=== PATIENT | female | born 1965 | race Caucasian/White ===

== ENCOUNTER 2020-02-24 07:55 | Outpatient (REF) | payer OTHER, SELFPAY ==
[2020-02-24 09:26] LABS: Free T4 (Free Thyroxine) 0.99 ng/dL (0.71-1.85); Thyroid Stimulating Hormone 1.09 mIU/mL (0.32-4.0)
== END 2020-02-24 07:56 | disposition home or self-care (01) ==
LOC: HO.LAB 07:55
PROVIDERS: PCP Family Medicine; Visit Provider Family Medicine
DX: I10 Essential (primary) hypertension (principal); L65.9 Nonscarring hair loss, unspecified
CPT/HCPCS: 84439; 84443

== ENCOUNTER 2020-02-26 09:45 | Emergency (ER) | payer OTHER, SELFPAY ==
--- NOTE | 2020-02-26 | XR_ITS ---
EXAMINATION: XR CHEST CLINICAL INFORMATION: Chest pain COMPARISON: None TECHNIQUE: 2 views of the chest were obtained. FINDINGS: The cardiac and mediastinal contours are normal. The lungs are clear. There is no pleural effusion or pneumothorax. There are degenerative changes of the thoracic spine. There are postsurgical changes of the visualized lower cervical spine. IMPRESSION: No evidence for acute disease in the chest.
[2020-02-26 10:19] VITALS: BP 146/73; PULSE 62; RESP 16; TEMP 36.8; O2SAT 98; BMI 27.4
--- NOTE | 2020-02-26 10:32 | ECG_ITS ---
Test Reason : CHEST PAIN Blood Pressure : / mmHG Vent. Rate : 059 BPM Atrial Rate : 059 BPM P-R Int : 152 ms QRS Dur : 084 ms QT Int : 424 ms P-R-T Axes : 027 012 -04 degrees QTc Int : 419 ms Sinus bradycardia Septal infarct (cited on or before 10-AUG-2019) Nonspecific T wave abnormality Inferior leads Abnormal ECG When compared with ECG of 10-AUG-2019 07:26, Nonspecific T wave abnormality no longer evident in Lateral leads Referred By: Toan Pereira Electronically Signed By:DONAVON ARANDA MD
[2020-02-26 10:57] LABS: Glucose Urine UA NEG (NEG); Leukocyte Esterase Urine NEG (NEG); Nitrite Urine NEG (NEG); Specific Gravity - Urine 1.025 (1.005-1.025); Urine Blood NEG (NEG); Urine Ketones NEG (NEG); Urine Protein NEG (NEG-TRACE)
[2020-02-26 10:58] LABS: MANUAL DIFF FLAG NO
[2020-02-26 10:58] LABS: Appearance Urine CLEAR; Color Urine YELLOW
[2020-02-26 10:59] LABS: UPreg QC Valid YES; Urine Pregnancy NEGATIVE (NEGATIVE)
[2020-02-26 11:08] LABS: Mucus Urine 1+ /LPF; RBC Urine 0 /HPF (0); Squamous Epithelial Cell Urine 1+ /LPF; WBC Urine 0 /HPF (0-4)
[2020-02-26 11:08] LABS: Basophils Percent Auto 0.5 % (0-2); Eosinophils Percent Auto 0.7 % (0-4); Hematocrit 40.5 % (37-47); Hemoglobin 13.1 g/dl (12.0-16.0); Imm Gran Abs Auto 0.02 X10*3/uL (0.00-0.03); Imm Gran Pct Auto 0.4 % (0.0-0.4); Lymphocytes Absolute Auto 1.5 X10*3/uL (1.2-4.9); Lymphocytes Percent Auto 27.1 % (20-40); Mean Corpuscular HGB Conc 32.3 g/dl (31.0-35.0); Mean Corpuscular Hemoglobin 30.4 pg (27.0-33.0); Mean Platelet Volume 9.9 fL (9.4-12.3); Monocytes Absolute Auto 0.4 X10*3/uL (0.1-1.2); Monocytes Percent Auto 6.6 % (2-11); Neutrophils Absolute Auto 3.6 X10*3/uL (2.0-8.3); Neutrophils Percent Auto 64.7 % (45-73); Platelet Count 250 X10*3/uL (160-400); Red Blood Count 4.31 X10*6/uL (4.20-5.50); Red Cell Distribution Width 14.2 % (11.0-16.0); White Blood Count 5.5 X10*3/uL (4.8-10.8)
[2020-02-26 11:13] LABS: Prothrombin Time 11.5 SEC (10.8-13.0)
[2020-02-26 11:24] LABS: Alanine Aminotransferase 9 U/L (0-31); Alkaline Phosphatase 51 U/L (39-117); Anion Gap 10 (12-20); Aspartate Amino Transferase 9 U/L (5-31); Bilirubin Direct < 0.2 mg/dL (0.0-0.5); Bilirubin Total 0.4 mg/dL (0.0-1.0); Blood Urea Nitrogen 9 mg/dL (9-16); Carbon Dioxide 29 mmol/L (22-29); Chloride 104 mmol/L (96-108); Creatinine Clr Calc Pharmacy 77.4; Estimated Glomerular Filt Rate > 60; Glucose Random 121 mg/dL (60-115); Potassium 4.4 mmol/l (3.3-5.1); Sodium 139 mmol/L (135-145)
[2020-02-26 11:28] LABS: B Type Natriuretic Peptide 62 pg/mL (<100); Troponin-I High Sensitivity < 3.5 ng/L (<3.5-17.0)
--- NOTE | 2020-02-26 12:04 | ED.CHESTPAIN ---
HPI - Chest Pain General Chief Complaint: Chest Pain Stated Complaint: HIGH BLOOD PRESSURE Time Seen by Provider: 02/26/20 09:50 Source: patient Mode of arrival: ambulatory Limitations: no limitations History of Present Illness HPI narrative: 54yoF c PMHx of HTN recently started on Lisinopril presenting to the ED c c/o elevated BP since lastnight 190's/90's c associated c mid-sternal chest pain and b;lurry vision and slight SOB. reports the chest pain feels like pressure. Has been constant since last night. Nothing makes the pain worse. Nothing makes the pain better. Denies N/V, headache, lightheadedness, dizziness, back pain, radiation of the pain, Extremity swelling or paresthesias. Patient denies being on oral control, recent travel on a long plane train or car ride, history of cancer, history of recent surgery or hypercoagulation disorder. Risk Factors Coronary artery disease risk factors: hypertension Related Data Allergies Allergy/AdvReac Type Severity Reaction Status Date / Time oxycodone [OXYCODONE] Allergy Intermediate ITCHING/FAT Unverified 02/04/20 15:52 IGUE/HEADAC HE Review of Systems Review of Systems: Yes all other systems are reviewed and are negative Constitutional: Constitutional: Reports as per HPI, Denies body ache(s), Denies chills, Denies excessive sweating, Denies fatigue, Denies fever(s), Denies headache(s) and Denies night sweats Eyes: Eyes: Reports as per HPI ENT: Reports as per HPI, Denies dizziness, Denies facial pain, Denies headache(s), Denies neck pain and Denies disequilibrium Cardiovascular: Cardiovascular: Reports as per HPI, Denies diaphoresis, Denies syncope, Denies rapid heart rate, Denies pedal edema, Denies edema, Denies irregular heart rhythm, Denies leg ulcers, Denies leg edema, Denies lightheadedness, Denies Loss of Consciousness, Denies radiating jaw, neck or arm pain, Denies palpitations, Denies dyspnea on exertion, Denies orthopnea, Denies paroxysmal nocturnal dyspnea and Denies slow heart rate Respiratory: Respiratory: Reports as per HPI, Denies chest congestion, Denies cough, Denies dyspnea on exertion and Denies wheezing Gastrointestinal: Gastrointestinal: Reports as per HPI, Denies abdominal pain, Denies diarrhea, Denies nausea and Denies vomiting Genitourinary: Genitourinary: Reports as per HPI, Denies dysuria, Denies urinary hesitancy and Denies urinary urgency Musculoskeletal: Musculoskeletal: Reports as per HPI, Denies neck pain, Denies numbness, Denies radiating pain into limb and Denies tingling Integumentary/Breasts: Skin/Breast: Reports as per HPI and Denies rash Neurologic: Reports as per HPI, Denies confusion, Denies dizziness, Denies syncope, Denies headache(s), Denies focal weakness, Denies numbness, Denies tingling, Denies paresthesias and Denies disequilibrium Psychiatric: Psychiatric: Reports as per HPI and Denies confusion Endocrine: Endocrine: Reports as per HPI, Denies excessive sweating, Denies fatigue and Denies palpitations Hematologic/Lymphatic: Hematologic/Lymphatic: Reports as per HPI Allergic/Immunologic: Allergic/Immunologic: Reports as per HPI and Denies wheezing PMFSH Past Medical History Attestation statement: The following information was validated with the patient. Medical History Cervical (neck) region somatic dysfunction Social History Social History Smoked in Last 30 Days: No Use of substances other than those prescribed or required for medical reasons: No Advance Directives: No Advance Directives Information Provided: No Physical Exam Vital Signs and I&O and Narrative: Vital Signs and I&O: Vital Signs Temp 97.7 F 02/26/20 12:38 Pulse 56 02/26/20 12:38 Resp 12 02/26/20 12:38 BP 163/88 H 02/26/20 12:38 Pulse Ox 100 02/26/20 12:38 Intake & Output 02/25/20 02/26/20 02/26/20 18:59 06:59 18:59 Weight 72.575 kg Body Mass Index 27.4 Const: General: cooperative, healthy appearing, comfortable, no acute distress, well developed, alert, awake and Physically active; No confusion Nutritional Appearance: average body habitus and well nourished Orientation/consciousness: patient oriented x3 and No confusion Limitations: no limitations HENMT: Head: Yes normal to inspection, Yes No palpable skull fracture present, Yes normocephalic and Yes atraumatic Ears: hearing grossly normal bilaterally General nose exam: Normal external nose present Face and sinus: Yes normal facial exam Mouth: moist mucous membranes Eyes: General: appearance normal, both eyes and all related structures Visual Saleem: normal visual saleem by confrontation Alignment and Position: alignment normal Periorbital: periorbital findings normal Eyelids: Yes eyelids normal Conjunctivae: conjunctivae normal Sclerae: sclerae normal Pupils: Equal, round and reactive pupils present EOM: EOMs intact bilaterally Neck: Neck: Yes normal visual inspection, Yes full ROM, Yes no lymphadenopathy, Yes no meningeal signs, Yes trachea midline and Yes supple Chest: Chest palpation & inspection: normal inspection of the chest Resp: Effort & Inspection: normal respiratory effort and able to speak in complete sentences Auscultation: clear to auscultation bilaterally, no crackles, no rales, no rhonchi and no wheezes Cardio: Rate: regular rate Rhythm: regular rhythm Heart sounds: S1 normal heart sound present and S2 normal heart sound present Peripheral pulses: Peripheral pulses 2+ throughout GI: Inspection: Yes normal to inspection Palpation (GI): Soft to palpation, nontender and No hepatosplenomegaly present Percussion: Yes normal to percussion Auscultation: normal bowel sounds : General: Yes no CVA tenderness Back/Spine/Pelvis: Back: no CVA tenderness Cervical Spine: normal cervical lordosis and cervical ROM normal Thoracic/Lumbar Spine: thoracic and lumbar spine normal to inspection and thoraco-lumbar ROM normal Skin: General skin exam: no rashes or lesions noted, elasticity normal and turgor normal Trauma: no lacerations or abrasions Wounds: no wounds Hair: normal Nails: normal Neuro: General: patient oriented x3, no meningeal signs and No confusion Cranial nerves: Yes CN's II-XII intact bilaterally and Yes Equal, round and reactive pupils present Cognition (Neuro): normal cognition Gait exam (Neuro): Normal gait present Motor exam (neuro): 5/5 motor strength present throughout Extrem: General: Yes normal to inspection, Yes full ROM, Yes capillary refill normal, Yes no clubbing, cyanosis or edema, No no pedal edema, No no calf tenderness, Yes normal gait and No edema Right upper extremity: normal to inspection, full ROM and normal capillary refill; no edema Left upper extremity: normal to inspection, full ROM and normal capillary refill; no edema Right lower extremity: normal to inspection, full ROM and normal capillary refill; no edema Left lower extremity: normal to inspection, full ROM and normal capillary refill; no edema Psych: Appearance: grossly normal and well kempt Mental Status: mental status grossly normal Speech and movement: Normal speech and movement present and Clear speech present Affect: normal affect Attitude: cooperative Thought process: Normal thought process present Thought content: Normal thought content present Insight: Good insight present (Psych) Judgement: Good judgement present (Psych) Course Course Course Narrative: All labs within normal limits including troponin. EKG sinus bradycardia no acute ischemic changes and similar when compared to prior in July of 2019. chest x-ray within normal limits no acute processes noted. Visual acuity within normal limits. Patient's blood pressure has been 140s-160's over 80s while here in the ER. I instructed the patient to return if any new or worsening symptoms to follow-up with primary care provider within the next 2 days for recheck blood pressure and possibly a stress test. Patient understands agrees with this plan. MDM - Chest Pain MDM Narrative Medical decision making narrative: 54yoF c PMHx of HTN recently started on Lisinopril presenting to the ED c c/o elevated BP since lastnight 190's/90's c associated c mid-sternal chest pain and b;lurry vision and slight SOB. reports the chest pain feels like pressure. Has been constant since last night. Nothing makes the pain worse. Nothing makes the pain better. Denies N/V, headache, lightheadedness, dizziness, back pain, radiation of the pain, Extremity swelling or paresthesias. Patient denies being on oral control, recent travel on a long plane train or car ride, history of cancer, history of recent surgery or hypercoagulation disorder. - Concern for ACS vs uncontrolled hypertension. - Plan: Labs, CXR, EKG. Then re-evaluate Medical Records Data Attestation: I reviewed the patient's medical records. Lab Data Attestation: I reviewed the patient's lab results. Result diagrams: 02/26/20 10:47 02/26/20 10:47 Labs: Lab Results 02/26/20 02/26/20 02/26/20 Range/Units 10:45 10:47 10:47 WBC 5.5 (4.8-10.8) X10*3/uL RBC 4.31 (4.20-5.50) X10*6/uL Hgb 13.1 (12.0-16.0) g/dl Hct 40.5 (37-47) % MCV 94.0 (80-98) fL MCH 30.4 (27.0-33.0) pg MCHC 32.3 (31.0-35.0) g/dl RDW 14.2 (11.0-16.0) % Plt Count 250 (160-400) X10*3/uL MPV 9.9 (9.4-12.3) fL Immature Gran % (Auto) 0.4 (0.0-0.4) % Neut % (Auto) 64.7 (45-73) % Lymph % (Auto) 27.1 (20-40) % [place] % (Auto) 6.6 (2-11) % Eos % (Auto) 0.7 (0-4) % Baso % (Auto) 0.5 (0-2) % Lymph # (Auto) 1.5 (1.2-4.9) X10*3/uL [place] # (Auto) 0.4 (0.1-1.2) X10*3/uL Eos # (Auto) 0.0 (0.0-0.4) X10*3/uL Baso # (Auto) 0.0 (0.0-0.2) X10*3/uL Abs Immat Gran (auto) 0.02 (0.00-0.03) X10*3/uL Absolute Neuts (auto) 3.6 (2.0-8.3) X10*3/uL Absolute Nucleated RBC 0.000 (0.0-0.012) X10*3/uL Nucleated RBC % (auto) 0.0 (0.0-0.2) /100WBC PT 11.5 (10.8-13.0) SEC INR 1.0 (0.9-1.1) Sodium (135-145) mmol/L Potassium (3.3-5.1) mmol/l Chloride (96-108) mmol/L Carbon Dioxide (22-29) mmol/L Anion Gap (12-20) BUN (9-16) mg/dL Creatinine (0.5-1.4) mg/dL Estim Creat Clear Calc Estimated GFR Random Glucose (60-115) mg/dL Calcium (8.4-10.2) mg/dL Total Bilirubin (0.0-1.0) mg/dL Direct Bilirubin (0.0-0.5) mg/dL AST (5-31) U/L ALT (0-31) U/L Alkaline Phosphatase (39-117) U/L Troponin I High Sens (<3.5-17.0) ng/L B-Natriuretic Peptide (<100) pg/mL Total Protein (6.5-8.0) g/dL Albumin (3.5-5.0) g/dL Urine Color YELLOW Urine Appearance CLEAR Urine pH 6.0 (5.0-8.0) Ur Specific [place] 1.025 (1.005-1.025) Urine Protein NEG (NEG-TRACE) MG/DL Urine Glucose (UA) NEG (NEG) MG/DL Urine Ketones NEG (NEG) MG/DL Urine Blood NEG (NEG) Urine Nitrite NEG (NEG) Ur Leukocyte Esterase NEG (NEG) Urine RBC 0 (0) /HPF Urine WBC 0 (0-4) /HPF Ur Squamous Epith Cells 1+ /LPF Urine Bacteria NONE /LPF Urine Mucus 1+ /LPF Urine Test NEGATIVE (NEGATIVE) 02/26/20 02/26/20 Range/Units 10:47 10:47 WBC (4.8-10.8) X10*3/uL RBC (4.20-5.50) X10*6/uL Hgb (12.0-16.0) g/dl Hct (37-47) % MCV (80-98) fL MCH (27.0-33.0) pg MCHC (31.0-35.0) g/dl RDW (11.0-16.0) % Plt Count (160-400) X10*3/uL MPV (9.4-12.3) fL Immature Gran % (Auto) (0.0-0.4) % Neut % (Auto) (45-73) % Lymph % (Auto) (20-40) % [place] % (Auto) (2-11) % Eos % (Auto) (0-4) % Baso % (Auto) (0-2) % Lymph # (Auto) (1.2-4.9) X10*3/uL [place] # (Auto) (0.1-1.2) X10*3/uL Eos # (Auto) (0.0-0.4) X10*3/uL Baso # (Auto) (0.0-0.2) X10*3/uL Abs Immat Gran (auto) (0.00-0.03) X10*3/uL Absolute Neuts (auto) (2.0-8.3) X10*3/uL Absolute Nucleated RBC (0.0-0.012) X10*3/uL Nucleated RBC % (auto) (0.0-0.2) /100WBC PT (10.8-13.0) SEC INR (0.9-1.1) Sodium 139 (135-145) mmol/L Potassium 4.4 (3.3-5.1) mmol/l Chloride 104 (96-108) mmol/L Carbon Dioxide 29 (22-29) mmol/L Anion Gap 10 L (12-20) BUN 9 (9-16) mg/dL Creatinine 0.82 (0.5-1.4) mg/dL Estim Creat Clear Calc 77.4 Estimated GFR > 60 Random Glucose 121 H (60-115) mg/dL Calcium 9.0 (8.4-10.2) mg/dL Total Bilirubin 0.4 (0.0-1.0) mg/dL Direct Bilirubin < 0.2 (0.0-0.5) mg/dL AST 9 (5-31) U/L ALT 9 (0-31) U/L Alkaline Phosphatase 51 (39-117) U/L Troponin I High Sens < 3.5 (<3.5-17.0) ng/L B-Natriuretic Peptide 62 (<100) pg/mL Total Protein 7.0 (6.5-8.0) g/dL Albumin 4.0 (3.5-5.0) g/dL Urine Color Urine Appearance Urine pH (5.0-8.0) Ur Specific [place] (1.005-1.025) Urine Protein (NEG-TRACE) MG/DL Urine Glucose (UA) (NEG) MG/DL Urine Ketones (NEG) MG/DL Urine Blood (NEG) Urine Nitrite (NEG) Ur Leukocyte Esterase (NEG) Urine RBC (0) /HPF Urine WBC (0-4) /HPF Ur Squamous Epith Cells /LPF Urine Bacteria /LPF Urine Mucus /LPF Urine Test (NEGATIVE) ECG Data ECG #1: Attestation: I personally reviewed and interpreted this ECG as follows: ECG interpretation date: 02/26/20 ECG interpretation time: 10:32 Prior ECG tracings: available for review Interpretation: sinus bradycardia with ventricular rate of 59 with a normal UT interval and normal QRS duration, normal QT / QTC interval. No acute ischemic changes noted. Similar when compared to prior on 08/10/2019. Scores Heart Score History: -0- slightly suspicious ECG: -0- normal Age: -1- >45 - <65 Risk factory: -1- 1 or 2 risk factors Troponin: -0- < or = normal limit Score: 2 Risk: 1.7% Additional Scores MERLY risk Score: Score: 1 Comment: 5% risk at 14 days of: all-cause mortality, new or recurrent VA, or severe recurrent ischemia requiring urgent revascularization. Discharge Plan Discharge Clinical Impression: Atypical chest pain Hypertension Qualifiers: Hypertension type: essential hypertension Qualified Code(s): I10 - Essential (primary) hypertension Patient Disposition: Home, Self-Care Instructions: Chest Pain (ED), Hypertension (ED) Referrals: Emerson Smith MD [Primary Care Provider] - 2 days Stand Alone Forms: Work/School Release Print Language: Tamazight
[2020-02-26 12:38] VITALS: BP 163/88; PULSE 56; RESP 12; TEMP 36.5; O2SAT 100
== END 2020-02-26 13:16 | disposition home or self-care (01) ==
PROVIDERS: Physician Assistant Medical; Emergency Provider Internal Medicine; PCP Family Medicine
DX: R07.89 Other chest pain (principal); I10 Essential (primary) hypertension; Z79.899 Other long term (current) drug therapy
CPT/HCPCS: 36415; 71046; 80048; 80076; 81001; 81025; 83880; 84484; 85025; 85610; 93005; 99283; 99284

== ENCOUNTER → 2020-03-21 15:17 | Outpatient (BNVA) | payer OTHER, SELFPAY | PROVIDERS: PCP Family Medicine; Visit Provider Obstetrics & Gynecology | DX: Z76.89 Persons encountering health services in other specified circumstances (principal) ==

== ENCOUNTER 2020-04-22 08:47 | Outpatient (REF) | payer MEDICAID, SELFPAY | END 2020-04-22 08:48 | disposition home or self-care (01) | LOC: HO.LAB 08:47 | PROVIDERS: Visit Provider Internal Medicine | DX: Z20.828 Contact with and (suspected) exposure to other viral communicable diseases (principal) | CPT/HCPCS: C9803; U0003 ==

== ENCOUNTER 2020-05-23 08:16 | Outpatient (REF) | payer OTHER, SELFPAY ==
--- NOTE | 2020-05-23 08:46 | MM_ITS ---
EXAMINATION: MM SCREENING DIGITAL BREAST TOMOSYNTHESIS, BILATERAL CLINICAL INFORMATION: Screening. Asymptomatic. The lifetime risk of breast cancer based on the Tyrer-Cuzick Model is 7%. COMPARISON: Mammography: 05/18/2019, 11/27/2017, 11/26/2016 TECHNIQUE: Digital mammography is performed in craniocaudal and mediolateral oblique views along with computer-aided detection (CAD). Digital breast tomosynthesis is performed in implant-displaced craniocaudal and implant-displaced mediolateral oblique views along with computer-aided detection (CAD). Synthesized 2D images are generated from the tomosynthesis. FINDINGS: There are scattered areas of fibroglandular density (ACR BI-RADS breast composition Category b). There are no significant masses, abnormal calcifications, or other abnormalities. There are bilateral implants. The implant margins are smooth. Parenchymal pattern is similar to prior studies. Again, there are incidental intramammary nodes mid outer left breast and mid outer right breast. MM/MM tomosynthesis screen imp BI IMPRESSION: No mammographic evidence of malignancy. ASSESSMENT: BI-RADS 2: Benign RECOMMENDATION: Routine annual mammography screening. This patient's information was entered into a reminder system with a target due date for their next mammogram.
[2020-05-23 09:20] LABS: Anion Gap 10 (12-20); Blood Urea Nitrogen 16 mg/dL (9-16); Carbon Dioxide 26 mmol/L (22-29); Chloride 107 mmol/L (96-108); Estimated Glomerular Filt Rate > 60; Potassium 4.2 mmol/l (3.3-5.1); Sodium 139 mmol/L (135-145)
== END 2020-05-23 08:17 | disposition home or self-care (01) ==
LOC: HO.MAMMO 08:16
PROVIDERS: Absent Provider Obstetrics & Gynecology; PCP Family Medicine; Visit Provider Family Medicine
DX: Z12.31 Encounter for screening mammogram for malignant neoplasm of breast (principal); I10 Essential (primary) hypertension
CPT/HCPCS: 36415; 77063; 77067; 80051; 82565; 84520

== ENCOUNTER 2020-09-27 08:56 | Outpatient (REF) | payer OTHER, SELFPAY ==
[2020-09-27 10:08] LABS: Anion Gap 12 (12-20); Blood Urea Nitrogen 16 mg/dL (9-16); Calcium 9.7 mg/dL (8.4-10.2); Carbon Dioxide 28 mmol/L (22-29); Chloride 103 mmol/L (96-108); Estimated Glomerular Filt Rate > 60; Potassium 4.2 mmol/L (3.3-5.1); Sodium 139 mmol/L (135-145)
[2020-09-27 10:30] LABS: Free T4 (Free Thyroxine) 0.88 ng/dL (0.71-1.85); Thyroid Stimulating Hormone 0.51 uIU/mL (0.32-4.0)
[2020-09-27 10:46] LABS: Erythrocyte Sedimentation Rate 17 MM/HR (0-20)
[2020-10-02 16:21] LABS: Chromogranin A 140 ng/mL (ADULTS: <311)
== END 2020-09-27 08:57 | disposition home or self-care (01) ==
LOC: HO.LAB 08:56
PROVIDERS: PCP Family Medicine; Visit Provider Family Medicine
DX: I10 Essential (primary) hypertension (principal)
CPT/HCPCS: 36415; 80051; 82310; 82565; 84439; 84443; 84520; 85652; 86316

== ENCOUNTER 2021-01-26 19:10 | Inpatient (IN) | payer OTHER, SELFPAY ==
--- NOTE | ~2021-01-26 | FL_ITS ---
EXAMINATION: XR FLUOROSCOPY WITH IMAGES CLINICAL INFORMATION: Left ureteral stent COMPARISON: CT abdomen from 01/26/2021 TECHNIQUE: Fluoroscopy performed in the operating room, Dr. Troy. Fluoroscopy time: 45 seconds Dose: 12/53 mGy Images: 4 saved images FL/FL guidance in OR FINDINGS AND IMPRESSION: Fluoroscopic imaging utilized during retrograde ureterography, revealing distal ureteral stone, followed by stent insertion. Please refer to the operative report.
--- NOTE | ~2021-01-26 | CT_ITS ---
EXAMINATION: CT ABDOMEN AND PELVIS WITH CONTRAST CLINICAL INFORMATION: Left flank and lower quadrant pain COMPARISON: CT abdomen pelvis 08/08/2015 TECHNIQUE: Multidetector volumetric images were obtained from the superior aspect of the liver through the pubic symphysis following administration 85 mL of Omnipaque 350 intravenous contrast. Sagittal and coronal reformatted images were obtained on the technologist's workstation. Oral contrast: No This CT examination was performed using dose optimization techniques as appropriate, variously including the following: *Automated exposure control *Adjustment of mA and/or kV according to patient size (this includes techniques or standardized protocols for targeted exams where dose is matched to indication/reason for exam; i.e. extremities or head) *Use of iterative reconstruction technique DLP: 571 mGy-cm FINDINGS: LUNG BASES: Bilateral breast prostheses are present. Some minimal peripheral groundglass changes noted at the left lung base. No pleural effusions. LIVER, GALLBLADDER, AND BILIARY TREE: The liver is enlarged with decreased attenuation suggesting hepatic steatosis. The gallbladder is unremarkable with no evidence of radiopaque gallstones, gallbladder wall thickening, or obvious pericholecystic inflammatory changes. PANCREAS: Unremarkable. SPLEEN: Unremarkable. ADRENAL GLANDS: Unremarkable. KIDNEYS AND URETERS: Left: There is a large 1.0 x 0.7 x 0.9 cm obstructing distal left ureteral calculus just above the level of the ureterovesical junction. The stone measures 1200 Hounsfield units and is 14 cm from the posterior axillary line. There is a dilated ureter and intrarenal collecting system without evidence of forniceal rupture with fluid surrounding the kidney as well as the ureter. There is a tiny punctate nonobstructing 2 mm left lower pole renal calculus present. No left renal masses are seen. Right: There is a tiny punctate lower pole 1 mm right renal calculus present (see tovar image). No other calculi present. There is an upper pole 2.7 cm simple benign Bosniak class I renal cyst. No hydronephrosis. No solid renal masses. BLADDER: Unremarkable. GASTROINTESTINAL TRACT: The small and large bowel are unremarkable. The appendix is unremarkable. ABDOMINAL WALL: No significant hernia is appreciated. Large calcified probable injection granuloma noted in the right buttocks. LYMPH NODES: Normal. VASCULAR: Unremarkable. PELVIC VISCERA: Surgically absent OSSEOUS STRUCTURES: Unremarkable. CT/CT abdomen pelvis w con IMPRESSION: 1. Large 1 cm distal left ureteral obstructing calculus with associated hydronephrosis and dilated dictation of the ureter with evidence of forniceal rupture and perinephric and periureteric fluid. 2. Incidental note made of bilateral breast prostheses, enlarged fatty liver, small intrarenal nonobstructing calculi bilaterally and benign right Bosniak class I renal cyst.
[2021-01-26 19:59] VITALS: BP 202/104; PULSE 73; RESP 16; TEMP 36.6; O2SAT 98; BMI 27.4
[2021-01-26 21:10] VITALS: BP 192/110; PULSE 76; RESP 16; TEMP 37; O2SAT 97
[2021-01-26 21:57] LABS: Basophils Percent Auto 0.2 % (0-2); Eosinophils Percent Auto 0.1 % (0-4); Hematocrit 40.4 % (37-47); Hemoglobin 12.9 g/dl (12.0-16.0); Imm Gran Abs Auto 0.05 X10*3/uL (0.00-0.03); Imm Gran Pct Auto 0.4 % (0.0-0.4); Lymphocytes Absolute Auto 1.1 X10*3/uL (1.2-4.9); Lymphocytes Percent Auto 10.1 % (20-40); MANUAL DIFF FLAG NO; Mean Corpuscular HGB Conc 31.9 g/dl (31.0-35.0); Mean Corpuscular Hemoglobin 27.6 pg (27.0-33.0); Mean Corpuscular Volume 86.5 fL (80-98); Monocytes Absolute Auto 0.6 X10*3/uL (0.1-1.2); Monocytes Percent Auto 4.9 % (2-11); Neutrophils Absolute Auto 9.4 X10*3/uL (2.0-8.3); Neutrophils Percent Auto 84.3 % (45-73); Platelet Count 248 X10*3/uL (160-400); Red Blood Count 4.67 X10*6/uL (4.20-5.50); Red Cell Distribution Width 16.1 % (11.0-16.0); White Blood Count 11.2 X10*3/uL (4.8-10.8)
--- NOTE | 2021-01-26 22:00 | ED_ITS ---
HPI - Abdominal Pain General Chief Complaint: Abdominal Pain Stated Complaint: Abdominal pain Time Seen by Provider: 01/26/21 21:35 Source: patient Mode of arrival: ambulatory History of Present Illness HPI narrative: 55-year-old female with history of fibromyalgia presents with onset of left flank/abdominal pain that started last night with the development of nausea and nonbloody vomiting today as well as chills but she denies any diarrhea or urinary pain/burning/frequency. Patient denies any history of kidney stones or diverticulitis. Related Data Home Medications Medication Instructions Recorded Confirmed gabapentin 300 mg capsule 300 mg PO DAILY 03/21/20 03/21/20 trazodone 100 mg tablet 100 mg PO DAILY 03/21/20 03/21/20 Allergies Allergy/AdvReac Type Severity Reaction Status Date / Time oxycodone [OXYCODONE] Allergy Intermediate ITCHING/FAT Unverified 02/04/20 15:52 IGUE/HEADAC HE Review of Systems Review of Systems Pertinent positives and negatives as stated in HPI 10 point review of systems otherwise negative. Physical Exam Vital Signs: Vital Signs: Last Vital Signs Temp 98.6 F 01/26/21 22:22 Pulse 76 01/26/21 22:22 Resp 16 01/26/21 22:22 BP 173/99 H 01/26/21 22:22 Pulse Ox 94 01/26/21 22:22 Body Mass Index 27.4 VITAL SIGNS: Reviewed. GENERAL: Well developed, well nourished, in no acute distress. HEAD: Normocephalic/atraumatic EYES: PERRLA, EOMI OROPHARYNX: no oral lesions noted, posterior pharynx clear LUNGS: Normal breath sounds. No adventitious sounds or accessory muscle use. SpO2<97> CARDIOVASCULAR: Regular rate and rhythm without noted murmurs ABDOMEN: Soft, non-tender, non-distended with bowel sounds, no CVA tenderness SKIN: Inspection of the skin reveals no rashes NEUROLOGIC: Alert and oriented x 4. Strength and sensation to light touch were grossly intact x 4. Course Course Course Narrative: 55-year-old female with history and clinical presentation suggestive of possible renal colic and less likely diverticulitis. On review of all investigations there are no acute findings other than noting an obstructing 1 cm stone with associated hydronephrosis, forniceal rupture and perinephric/periureteric fluid. I discussed this case with Urology who recommends admission. Patient is provided with a dose of antibiotics and after discussion of the case with the inpatient hospitalist who accepts admission. MDM - Abdominal Pain Lab Data Result diagrams: 01/26/21 21:52 01/26/21 21:52 Labs: Lab Results 01/26/21 01/26/21 01/26/21 Range/Units 21:52 21:52 22:19 WBC 11.2 H (4.8-10.8) X10*3/uL RBC 4.67 (4.20-5.50) X10*6/uL Hgb 12.9 (12.0-16.0) g/dl Hct 40.4 (37-47) % MCV 86.5 (80-98) fL MCH 27.6 (27.0-33.0) pg MCHC 31.9 (31.0-35.0) g/dl RDW 16.1 H (11.0-16.0) % Plt Count 248 (160-400) X10*3/uL MPV 10.0 (9.4-12.3) fL Immature Gran % (Auto) 0.4 (0.0-0.4) % Neut % (Auto) 84.3 H (45-73) % Lymph % (Auto) 10.1 L (20-40) % [place] % (Auto) 4.9 (2-11) % Eos % (Auto) 0.1 (0-4) % Baso % (Auto) 0.2 (0-2) % Lymph # (Auto) 1.1 L (1.2-4.9) X10*3/uL [place] # (Auto) 0.6 (0.1-1.2) X10*3/uL Eos # (Auto) 0.0 (0.0-0.4) X10*3/uL Baso # (Auto) 0.0 (0.0-0.2) X10*3/uL Abs Immat Gran (auto) 0.05 H (0.00-0.03) X10*3/uL Absolute Neuts (auto) 9.4 H (2.0-8.3) X10*3/uL Absolute Nucleated RBC 0.000 (0.0-0.012) X10*3/uL Nucleated RBC % (auto) 0.0 (0.0-0.2) /100WBC Sodium 138 (135-145) mmol/L Potassium 5.0 (3.3-5.1) mmol/L Chloride 104 (96-108) mmol/L Carbon Dioxide 23 (22-29) mmol/L Anion Gap 16 (12-20) BUN 16 (9-16) mg/dL Creatinine 1.04 (0.5-1.4) mg/dL Estim Creat Clear Calc 60.4 Estimated GFR 55 Random Glucose 186 H D (60-115) mg/dL Calcium 9.8 (8.4-10.2) mg/dL Total Bilirubin 0.6 (0.0-1.0) mg/dL AST 17 D (5-31) U/L ALT 14 (0-31) U/L Alkaline Phosphatase 62 D (39-117) U/L Total Protein 8.0 (6.5-8.0) g/dL Albumin 4.4 (3.5-5.0) g/dL Urine Color YELLOW Urine Appearance HAZY Urine pH 5.5 (5.0-8.0) Ur Specific [place] >= 1.030 H (1.005-1.025) Urine Protein 1+ H (NEG-TRACE) MG/DL Urine Glucose (UA) NEG (NEG) MG/DL Urine Ketones NEG (NEG) MG/DL Urine Blood 3+ H (NEG) Urine Nitrite NEG (NEG) Ur Leukocyte Esterase NEG (NEG) Urine RBC 76-150 H (0) /HPF Urine WBC 1-4 (0-4) /HPF Ur Squamous Epith Cells 1+ /LPF Ur Renal Epithelial Cell TRACE /LPF Calcium Oxalate Crystal 1+ /LPF Urine Bacteria 1+ /LPF Granular Casts 0-2 /LPF Urine Mucus 2+ /LPF Urine Yeast 1+ /HPF Discharge Plan Discharge Clinical Impression: Renal colic, Ureteral obstruction Patient Disposition: Admitted As Inpatient Prescriptions: No Action gabapentin 300 mg capsule 300 mg PO DAILY RF: 0 trazodone 100 mg tablet 100 mg PO DAILY RF: 0 PMFSH Past Medical History Source: nursing notes reviewed Medical History Cervical (neck) region somatic dysfunction Surgical History History of hysterectomy Social History Social History Alcohol intake: current Alcohol intake frequency: does not drink Patient Tobacco Use Status: Never used Tobacco Use of substances other than those prescribed or required for medical reasons: No Advance Directives: No Advance Directives Information Provided: No Sexual orientation: Straight/Heterosexual Gender identity: Female
[2021-01-26 22:15] LABS: Alanine Aminotransferase 14 U/L (0-31); Albumin Level 4.4 g/dL (3.5-5.0); Alkaline Phosphatase 62 U/L (39-117); Anion Gap 16 (12-20); Aspartate Amino Transferase 17 U/L (5-31); Bilirubin Total 0.6 mg/dL (0.0-1.0); Blood Urea Nitrogen 16 mg/dL (9-16); Calcium 9.8 mg/dL (8.4-10.2); Carbon Dioxide 23 mmol/L (22-29); Chloride 104 mmol/L (96-108); Creatinine Clr Calc Pharmacy 60.4; Estimated Glomerular Filt Rate 55; Glucose Random 186 mg/dL (60-115); Sodium 138 mmol/L (135-145)
[2021-01-26 22:22] VITALS: BP 173/99; PULSE 76; RESP 16; TEMP 37; O2SAT 94
[2021-01-26] MEDS: Acetaminophen 325 MG TABLET 975 MG PO (22:28)
[2021-01-26] MEDS: Ketorolac Tromethamine 15 MG/ML VIAL IVPUSH (22:28)
[2021-01-26] MEDS: 0.9 % Sodium Chloride 1,000 ML 999 ML IV (22:28)
[2021-01-26] MEDS: ondansetron HCL 4 MG/2 ML VIAL IVPUSH (22:28)
--- NOTE | 2021-01-26 22:28 | PC.NURSE ---
PT MEDICATED PER MAR, IVF HUNG AND INFUSING WITHOUT DIFFICULTY. AWAITING CT SCAN, AWARE OF PLAN OF CARE. RESTING IN BED GUARDING LEFT SIDE, SKIN PWD, RESPIRATIONS EVEN UNLABORED. NO FACIAL GRIMACING NOTED. WILL CONTINUE TO MONITOR.
[2021-01-26 22:33] LABS: Appearance Urine HAZY; Color Urine YELLOW; Glucose Urine UA NEG (NEG); Leukocyte Esterase Urine NEG (NEG); Nitrite Urine NEG (NEG); PH 5.5 (5.0-8.0); Specific Gravity - Urine >= 1.030 (1.005-1.025); UACC Culture Trigger NO; Urine Blood 3+ (NEG); Urine Ketones NEG (NEG); Urine Protein 1+ MG/DL (NEG-TRACE)
[2021-01-26 23:01] LABS: Bacteria Urine 1+ /LPF; Squamous Epithelial Cell Urine 1+ /LPF
[2021-01-26 23:02] LABS: Calcium Oxalate Crystals Urine 1+ /LPF; Granular Casts Urine 0-2 /LPF; Mucus Urine 2+ /LPF; Renal Epithelial Cells Urine TRACE /LPF; UACC CULT YES
[2021-01-26] MEDS: iohexoL 350 MG/ML 100 ML INFUS..BTL 85 ML IV (23:27)
--- NOTE | 2021-01-26 23:28 | PC.NURSE ---
PT OFF FLOOR TO CT.
[2021-01-27] VITALS (12 sets, daily range): BP systolic 131–175; BP diastolic 65–84; PULSE 58–80; RESP 14–20; TEMP 36.3–37.1; O2SAT 96–98; BMI 27.4
--- NOTE | 2021-01-27 01:20 | PM.IMHP ---
History of Present Illness Date of Service: 01/27/21 Chief Complaint: Flank pain 55-year-old female with past medical history of kidney stone presents to the hospital with complaints of left flank pain radiating to the groin area as well as suprapubic pain. Patient reports that she has history of kidney stones but developed pain in the flank region on Saturday night. She has also had nausea with some vomiting, denies any fever but some chills, she is also reporting decreased urine output. She denies any diarrhea or constipation. Denies any chest pain, no shortness of breath, no headache or change in vision, no numbness or tingling. No lower extremity edema. On arrival to the ED patient found to have a temp of 98, respiratory rate of 16, heart rate of 73, blood pressure of 202/104, satting 98% on room air. Patient's blood pressure is 148/82 at this time after receiving pain medications Labs on arrival are significant for WBC count of 11.2, otherwise unremarkable. UA is positive for blood, RBC, bacteria, WBC with no leukocyte esterase or nitrite CT abdomen is showing large 1 cm distal left ureteral obstructing calculus with associated hydronephrosis and dilated dictation of the ureter with evidence of foreign ACL rupture and perinephric and periureteric fluid. Patient will be admitted for further management Review of Systems Review of Systems: Yes all other systems are reviewed and are negative [facility] Medical History (Updated 01/27/21 @ 06:12 by Reena Guzman MD) Cervical (neck) region somatic dysfunction History of kidney stones Surgical History History of hysterectomy Social History Alcohol intake: current Alcohol intake frequency: does not drink Patient Tobacco Use Status: Never used Tobacco Use of substances other than those prescribed or required for medical reasons: No Advance Directives: No Advance Directives Information Provided: No Sexual orientation: Straight/Heterosexual Gender identity: Female Meds Allergies Allergy/AdvReac Type Severity Reaction Status Date / Time oxycodone [OXYCODONE] Allergy Intermediate ITCHING/FAT Unverified 02/04/20 15:52 IGUE/HEADAC HE Active Medications: Current Medications Generic Name Dose Route Start Last Admin Trade Name Freq PRN Reason Stop Dose Admin Ceftriaxone Sodium 1 gm/ 50 mls @ 100 mls/hr 01/27/21 01:01 Sodium Chloride IV 01/27/21 01:30 ONCE ONE Morphine Sulfate 4 mg 01/27/21 01:10 Morphine Sulfate 4 Mg/Ml Cartridge IVPUSH Q4H PRN Pain, Severe (Pain Scale 7-10) Protocol Home Medications Medication Instructions Recorded Confirmed Last Taken Type gabapentin 300 mg capsule 300 mg PO DAILY 03/21/20 01/27/21 01/25/21 History cyclobenzaprine 5 mg tablet 1 tab PO QAM 01/27/21 01/27/21 Unknown History diltiazem HCl 180 mg 1 cap PO BEDTIME 01/27/21 01/27/21 Unknown History capsule,extended release 24 hr famotidine 40 mg tablet 1 tab PO DAILY 01/27/21 01/27/21 01/25/21 History losartan 100 mg tablet 1 tab PO DAILY 01/27/21 01/27/21 Unknown History meloxicam 7.5 mg tablet 1 tab PO QAM PRN 01/27/21 01/27/21 Unknown History tizanidine 4 mg tablet 1 tab PO BEDTIME 01/27/21 01/27/21 01/25/21 History Physical Exam Vital Signs and Narrative: Vital Signs: Last Vital Signs Temp 98.6 F 01/26/21 22:22 Pulse 76 01/26/21 22:22 Resp 16 01/26/21 22:22 BP 173/99 H 01/26/21 22:22 Pulse Ox 94 01/26/21 22:22 Body Mass Index 27.4 Const: General: cooperative and no acute distress Orientation/consciousness: patient oriented x3 Eyes: General: appearance normal, both eyes and all related structures Resp: Effort & Inspection: normal respiratory effort Auscultation: clear to auscultation bilaterally Cardio: Rate: regular rate Rhythm: regular rhythm GI: Palpation (GI): Soft to palpation Auscultation: normal bowel sounds : Other: CVA tenderness on the left Suprapubic region pain Skin: General skin exam: no rashes or lesions noted Neuro: General: patient oriented x3 Cognition (Neuro): normal cognition Extrem: General: Yes normal to inspection and Yes no pedal edema Results Labs CBC and Chem 7: 01/26/21 21:52 01/26/21 21:52 Labs: Laboratory Results - last 24 hr 01/26/21 01/26/21 01/26/21 21:52 21:52 22:19 MCV 86.5 MCH 27.6 MCHC 31.9 RDW 16.1 H Plt Count 248 MPV 10.0 Immature Gran % (Auto) 0.4 Neut % (Auto) 84.3 H Lymph % (Auto) 10.1 L [place] % (Auto) 4.9 Eos % (Auto) 0.1 Baso % (Auto) 0.2 Lymph # (Auto) 1.1 L [place] # (Auto) 0.6 Eos # (Auto) 0.0 Baso # (Auto) 0.0 Abs Immat Gran (auto) 0.05 H Absolute Neuts (auto) 9.4 H Absolute Nucleated RBC 0.000 Nucleated RBC % (auto) 0.0 Anion Gap 16 Estim Creat Clear Calc 60.4 Estimated GFR 55 Random Glucose 186 H D Calcium 9.8 Total Bilirubin 0.6 AST 17 D ALT 14 Alkaline Phosphatase 62 D Total Protein 8.0 Albumin 4.4 Urine Color YELLOW Urine Appearance HAZY Urine pH 5.5 Ur Specific [place] >= 1.030 H Urine Protein 1+ H Urine Glucose (UA) NEG Urine Ketones NEG Urine Blood 3+ H Urine Nitrite NEG Ur Leukocyte Esterase NEG Urine RBC 76-150 H Urine WBC 1-4 Ur Squamous Epith Cells 1+ Ur Renal Epithelial Cell TRACE Calcium Oxalate Crystal 1+ Urine Bacteria 1+ Granular Casts 0-2 Urine Mucus 2+ Urine Yeast 1+ Imaging Radiologist's Impressions: Impressions Abdomen/Pelvis CT 01/26/21 22:03 IMPRESSION: 1. Large 1 cm distal left ureteral obstructing calculus with associated hydronephrosis and dilated dictation of the ureter with evidence of forniceal rupture and perinephric and periureteric fluid. 2. Incidental note made of bilateral breast prostheses, enlarged fatty liver, small intrarenal nonobstructing calculi bilaterally and benign right Bosniak class I renal cyst. Assessment and Plan (1) Hydronephrosis with renal and ureteral calculous obstruction: Status: Acute (2) Leukocytosis: Status: Acute (3) Hypertensive crisis: Status: Acute 55-year-old female with history of kidney stones presents to the hospital with flank pain found to have obstructing stone # hydronephrosis with renal and ureteral calculus obstruction - CT abdomen showing forniceal rupture - urology has been notified and patient will be planned for stent placement in a.m. - will start her on IV antibiotics - NPO # leukocytosis - most likely secondary to above - UA negative for infection - there is perinephric fluid - will start on IV antibiotics- antibiotics garett discontinued once patient has leukocytosis resolves and stone obstruction treated # hypertensive crisis - presented with significantly elevated blood pressure most likely secondary to pain - blood pressure better controlled at this time with no acute treatment - monitor DVT prophylaxis: SCD in the setting of potential procedure Quality Stroke Does the patient have a stroke diagnosis?: No VTE Prior VTE?: No VTE Risk Level:: Medical - moderate - high VTE Device Contraindication: N/A - Device Ordered VTE Drug Contraindication: Treatment Not Indicated
[2021-01-27] MEDS: cefTRIAXone sodium 1 GM in 0.9 % Sodium Chloride 50 ML IV (01:24)
--- NOTE | 2021-01-27 01:26 | PC.NURSE ---
PT MEDICATED PER MAR, TO BE ADMITTED, AWARE OF PLAN OF CARE. MEDICATIONS RECONCILED.
[2021-01-27] MEDS: Morphine Sulfate 4 MG/ML CARTRIDGE IVPUSH ×2 (01:45→08:50)
[2021-01-27 01:57] LABS: COVID-19 Test Negative (Negative); IDNOW Serial# 9DD0AD1C
[2021-01-27 06:20] LABS: MANUAL DIFF FLAG NO
[2021-01-27 06:21] LABS: Basophils Percent Auto 0.3 % (0-2); Eosinophils Percent Auto 0.1 % (0-4); Hematocrit 36.7 % (37-47); Hemoglobin 11.8 g/dl (12.0-16.0); Imm Gran Abs Auto 0.01 X10*3/uL (0.00-0.03); Imm Gran Pct Auto 0.1 % (0.0-0.4); Lymphocytes Absolute Auto 1.6 X10*3/uL (1.2-4.9); Lymphocytes Percent Auto 23.2 % (20-40); Mean Corpuscular HGB Conc 32.2 g/dl (31.0-35.0); Mean Corpuscular Hemoglobin 27.3 pg (27.0-33.0); Mean Corpuscular Volume 84.8 fL (80-98); Mean Platelet Volume 10.1 fL (9.4-12.3); Monocytes Absolute Auto 0.5 X10*3/uL (0.1-1.2); Monocytes Percent Auto 6.8 % (2-11); Neutrophils Absolute Auto 4.7 X10*3/uL (2.0-8.3); Neutrophils Percent Auto 69.5 % (45-73); Platelet Count 263 X10*3/uL (160-400); Red Blood Count 4.33 X10*6/uL (4.20-5.50); Red Cell Distribution Width 15.9 % (11.0-16.0); White Blood Count 6.8 X10*3/uL (4.8-10.8)
[2021-01-27 06:36] LABS: Anion Gap 12 (12-20); Blood Urea Nitrogen 11 mg/dL (9-16); Carbon Dioxide 25 mmol/L (22-29); Chloride 108 mmol/L (96-108); Creatinine Clr Calc Pharmacy 81.5; Estimated Glomerular Filt Rate > 60; Glucose Random 118 mg/dL (60-115); Potassium 4.2 mmol/L (3.3-5.1); Sodium 141 mmol/L (135-145)
--- NOTE | 2021-01-27 07:06 | PC.NURSE ---
Assumed care of patient. Pt is resting comfortably at this time and states pain is manageable. Bed pending.
--- NOTE | 2021-01-27 08:19 | P.CNUR_ITS ---
History of Present Illness Consult details Consult date: 01/27/21 Narrative: [place] is pleasant female. She is seen for the following urologic condition - nephrolithiasis Admit to emergency room last night with flank pain. Associated with nausea pain to 8/10. Non responsive to oral medications. Good response to treatment in emergency room Laboratories WBC 6.8. Calcium 9.0. Imaging CT scan Left: There is a large 1.0 x 0.7 x 0.9 cm obstructing distal left ureteral calculus just above the level of the ureterovesical junction. The stone measures 1200 Hounsfield units and is 14 cm from the posterior axillary line. There is a dilated ureter and intrarenal collecting system without evidence of forniceal rupture with fluid surrounding the kidney as well as the ureter She is a prior stone former Underwent ESWL many years ago Discussion today regarding ureteroscopy for stone management This will be organized Remain NPO Review of Systems Constitutional: Constitutional: Denies chills and Denies fever(s) Cardiovascular: Cardiovascular: Reports no additional cardiovascular complaints and Denies syncope Respiratory: Respiratory: Denies cough Gastrointestinal: Gastrointestinal: Denies abdominal pain and Denies heartburn Genitourinary: Genitourinary: Reports as per HPI and Denies change in libido Neurologic: Denies syncope Psychiatric: Psychiatric: Denies change in libido Endocrine: Endocrine: Denies change in libido [facility], [facility] Past Medical History Medical History (Updated 01/27/21 @ 06:12 by Reena Guzman MD) Cervical (neck) region somatic dysfunction History of kidney stones Surgical History Surgical History History of hysterectomy Social History Social History Alcohol intake: current Alcohol intake frequency: does not drink Patient Tobacco Use Status: Never used Tobacco Use of substances other than those prescribed or required for medical reasons: No Advance Directives: No Advance Directives Information Provided: No Sexual orientation: Straight/Heterosexual Gender identity: Female Meds Allergies Allergy/AdvReac Type Severity Reaction Status Date / Time oxycodone [OXYCODONE] Allergy Intermediate ITCHING/FAT Verified 01/27/21 07:07 IGUE/HEADAC HE Active Medications: Current Medications Generic Name Dose Route Start Last Admin Trade Name Freq PRN Reason Stop Dose Admin Acetaminophen 650 mg 01/27/21 01:40 Acetaminophen 325 Mg Tablet PO Q6H PRN Pain, Mild (Pain Scale 1-3) Docusate Sodium 100 mg 01/27/21 01:40 Docusate Sodium 100 Mg Capsule PO DAILY PRN Constipation Ceftriaxone Sodium 1 gm/ 50 mls @ 100 mls/hr 01/28/21 01:00 Sodium Chloride IV Q24H [facility] Morphine Sulfate 4 mg 01/27/21 01:10 01/27/21 01:45 Morphine Sulfate 4 Mg/Ml Cartridge IVPUSH 4 mg Q4H PRN Administration Pain, Severe (Pain Scale 7-10) Protocol Ondansetron HCl 4 mg 01/27/21 01:40 Ondansetron Hcl 4 Mg/2 Ml Vial IVPUSH Q8H PRN Nausea and Vomiting Sodium Chloride 3 ml 01/27/21 08:00 01/27/21 07:17 0.9 % Sodium Chloride Flush 3 Ml Syringe IVFLUSH Not Given QSHIFT [facility] Home Medications Medication Instructions Recorded Confirmed Last Taken Type gabapentin 300 mg capsule 300 mg PO DAILY 03/21/20 01/27/21 01/25/21 History cyclobenzaprine 5 mg tablet 1 tab PO QAM 01/27/21 01/27/21 Unknown History diltiazem HCl 180 mg 1 cap PO BEDTIME 01/27/21 01/27/21 Unknown History capsule,extended release 24 hr famotidine 40 mg tablet 1 tab PO DAILY 01/27/21 01/27/21 01/25/21 History losartan 100 mg tablet 1 tab PO DAILY 01/27/21 01/27/21 Unknown History meloxicam 7.5 mg tablet 1 tab PO QAM PRN 01/27/21 01/27/21 Unknown History tizanidine 4 mg tablet 1 tab PO BEDTIME 01/27/21 01/27/21 01/25/21 History Physical Exam Vital Signs: Vital Signs: Last Vital Signs Temp 98.6 F 01/27/21 07:05 Pulse 62 01/27/21 07:05 Resp 18 01/27/21 07:05 BP 141/65 H 01/27/21 07:05 Pulse Ox 96 01/27/21 07:05 Body Mass Index 27.4 Const: General: cooperative, healthy appearing, comfortable and no acute distress Orientation/consciousness: patient oriented x3 HENMT: Face and sinus: Yes normal facial exam Mouth: moist mucous membranes Neck: Neck: Yes normal visual inspection, Yes full ROM and Yes trachea midline Chest: Chest palpation & inspection: normal inspection of the chest Resp: Effort & Inspection: normal respiratory effort, able to speak in complete sentences and no respiratory distress GI: Inspection: Yes normal to inspection Back/Spine/Pelvis: Cervical Spine: normal cervical lordosis Thoracic/Lumbar Spine: thoracic and lumbar spine normal to inspection Skin: General skin exam: no rashes or lesions noted Neuro: General: patient oriented x3, gait normal, tone normal and moves all extremities Extrem: General: Yes normal to inspection and Yes capillary refill normal Results Labs Result diagrams: 01/27/21 06:14 01/27/21 06:14 Labs: Abnormal lab results 01/26/21 01/26/21 01/26/21 Range/Units 21:52 21:52 22:19 WBC 11.2 H (4.8-10.8) X10*3/uL Hgb (12.0-16.0) g/dl Hct (37-47) % RDW 16.1 H (11.0-16.0) % Neut % (Auto) 84.3 H (45-73) % Lymph % (Auto) 10.1 L (20-40) % Lymph # (Auto) 1.1 L (1.2-4.9) X10*3/uL Abs Immat Gran (auto) 0.05 H (0.00-0.03) X10*3/uL Absolute Neuts (auto) 9.4 H (2.0-8.3) X10*3/uL Random Glucose 186 H D (60-115) mg/dL Ur Specific [place] >= 1.030 H (1.005-1.025) Urine Protein 1+ H (NEG-TRACE) MG/DL Urine Blood 3+ H (NEG) Urine RBC 76-150 H (0) /HPF 01/27/21 01/27/21 Range/Units 06:14 06:14 WBC (4.8-10.8) X10*3/uL Hgb 11.8 L (12.0-16.0) g/dl Hct 36.7 L (37-47) % RDW (11.0-16.0) % Neut % (Auto) (45-73) % Lymph % (Auto) (20-40) % Lymph # (Auto) (1.2-4.9) X10*3/uL Abs Immat Gran (auto) (0.00-0.03) X10*3/uL Absolute Neuts (auto) (2.0-8.3) X10*3/uL Random Glucose 118 H D (60-115) mg/dL Ur Specific [place] (1.005-1.025) Urine Protein (NEG-TRACE) MG/DL Urine Blood (NEG) Urine RBC (0) /HPF Short CBC 01/26/21 01/27/21 Range/Units 21:52 06:14 WBC 11.2 H 6.8 (4.8-10.8) X10*3/uL Hgb 12.9 11.8 L (12.0-16.0) g/dl Hct 40.4 36.7 L (37-47) % Plt Count 248 263 (160-400) X10*3/uL BMP 01/26/21 01/27/21 21:52 06:14 Sodium 138 141 Potassium 5.0 4.2 Chloride 104 108 Carbon Dioxide 23 25 BUN 16 11 Creatinine 1.04 0.77 Calcium 9.8 9.0 D Liver Function 01/26/21 Range/Units 21:52 Total Bilirubin 0.6 (0.0-1.0) mg/dL AST 17 D (5-31) U/L ALT 14 (0-31) U/L Alkaline Phosphatase 62 D (39-117) U/L Albumin 4.4 (3.5-5.0) g/dL Urine 01/26/21 Range/Units 22:19 Urine Color YELLOW Urine Appearance HAZY Urine pH 5.5 (5.0-8.0) Ur Specific [place] >= 1.030 H (1.005-1.025) Urine Protein 1+ H (NEG-TRACE) MG/DL Urine Glucose (UA) NEG (NEG) MG/DL All other labs normal. Assessment and Plan (1) Ureteral obstruction: Status: Acute (2) Hydronephrosis with renal and ureteral calculous obstruction: Status: Acute Ureteroscopy We discussed the nature of the decision and reasonable alternatives for performing the above surgery. Interventions include chemical dissolution, ESWL, ureteroscopy with laser lithotripsy and stent placement, PCNL. Options such as medical therapy were discussed. The relative uncertainties and benefits related to each alternate procedure were adequately discussed. General surgical risks including, but not limited to, pain, bleeding, infection, myocardial infarction, pulmonary embolus, deep vein thrombosis and cerebrovascular accident which may result in further hospitalization were discussed. Full disclosure of the procedure as well as all major risks, benefits and complications were discussed including but not limited to damage to the urethra, bladder and kidney infection, damage to the ureter, stent migration or malposition, scarring to the renal pelvis, remnant stone fragments, subsequent stone passage with need for secondary procedures. The overall secondary procedure rate is approximately 10-15%. The success rate of the procedure was discussed. Success of the procedure in the short-term does not necessarily guarantee that long-term success will be maintained. Suitable follow up will need to be maintained. The patient showed understanding of discussion and wishes to proceed with - cystoscopy, retrograde, ureteroscopy, possible lithotripsy/stone basketing and stent on the left side Procedures Date of Service Date of Service: 01/27/21
[2021-01-27] MEDS: Acetaminophen 325 MG TABLET 650 MG PO ×2 (08:49→18:04)
[2021-01-27] MEDS: levoFLOXacin 500 MG TABLET PO (08:50)
--- NOTE | 2021-01-27 16:06 | HO.ANESPROP2 ---
[facility] Active Problems Active Problems: All Active Problems (Updated 01/27/21 @ 06:12 by Reena Guzman MD) Hydronephrosis with renal and ureteral calculous obstruction (Acute) Leukocytosis (Acute) Hypertensive crisis (Acute) Renal colic (Acute) Ureteral obstruction (Acute) Well woman exam (Acute) Hypertension (Acute) Past Medical History Medical History (Updated 01/27/21 @ 06:12 by Reena Guzman MD) Cervical (neck) region somatic dysfunction History of kidney stones Surgical History Surgical History History of hysterectomy Social History Social History Household Members: Spouse Housing: Apartment Do you presently have visiting nurse or other home services: No Alcohol intake: current Alcohol intake frequency: does not drink Patient Tobacco Use Status: Never used Tobacco Sexual orientation: Straight/Heterosexual Gender identity: Female Meds Allergies Allergy/AdvReac Type Severity Reaction Status Date / Time oxycodone [OXYCODONE] Allergy Intermediate ITCHING/FAT Verified 01/27/21 07:07 IGUE/HEADAC HE Active Medications: Current Medications Generic Name Dose Route Start Last Admin Trade Name Freq PRN Reason Stop Dose Admin Acetaminophen 650 mg 01/27/21 01:40 01/27/21 08:49 Acetaminophen 325 Mg Tablet PO 650 mg Q6H PRN Administration Pain, Mild (Pain Scale 1-3) Docusate Sodium 100 mg 01/27/21 01:40 Docusate Sodium 100 Mg Capsule PO DAILY PRN Constipation Ceftriaxone Sodium 1 gm/ 50 mls @ 100 mls/hr 01/28/21 01:00 Sodium Chloride IV Q24H [facility] Morphine Sulfate 4 mg 01/27/21 01:10 01/27/21 08:50 Morphine Sulfate 4 Mg/Ml Cartridge IVPUSH 4 mg Q4H PRN Administration Pain, Severe (Pain Scale 7-10) Protocol Ondansetron HCl 4 mg 01/27/21 01:40 Ondansetron Hcl 4 Mg/2 Ml Vial IVPUSH Q8H PRN Nausea and Vomiting Sodium Chloride 3 ml 01/27/21 08:00 01/27/21 07:17 0.9 % Sodium Chloride Flush 3 Ml Syringe IVFLUSH Not Given QSHIFT [facility] Home Medications Medication Instructions Recorded Confirmed Last Taken Type gabapentin 300 mg capsule 300 mg PO DAILY 03/21/20 01/27/21 01/25/21 History cyclobenzaprine 5 mg tablet 1 tab PO QAM 01/27/21 01/27/21 Unknown History diltiazem HCl 180 mg 1 cap PO BEDTIME 01/27/21 01/27/21 Unknown History capsule,extended release 24 hr famotidine 40 mg tablet 1 tab PO DAILY 01/27/21 01/27/21 01/25/21 History losartan 100 mg tablet 1 tab PO DAILY 01/27/21 01/27/21 Unknown History meloxicam 7.5 mg tablet 1 tab PO QAM PRN 01/27/21 01/27/21 Unknown History tizanidine 4 mg tablet 1 tab PO BEDTIME 01/27/21 01/27/21 01/25/21 History Exam Exam Date and Time: January 27, 2021 1606 Height,Weight and Vital Signs: Height 5 ft 4 in Weight 72.575 kg Last Vital Signs Temp 98.6 F 01/27/21 07:05 Pulse 62 01/27/21 07:05 Resp 18 01/27/21 07:05 BP 141/65 H 01/27/21 07:05 Pulse Ox 96 01/27/21 07:05 Pertinent Lab Results Pertinent Lab Results: Laboratory Tests 01/26/21 01/26/21 01/26/21 21:52 21:52 22:19 WBC 11.2 H RBC 4.67 Hgb 12.9 Hct 40.4 MCV 86.5 MCH 27.6 MCHC 31.9 RDW 16.1 H Plt Count 248 MPV 10.0 Immature Gran % (Auto) 0.4 Neut % (Auto) 84.3 H Lymph % (Auto) 10.1 L [place] % (Auto) 4.9 Eos % (Auto) 0.1 Baso % (Auto) 0.2 Lymph # (Auto) 1.1 L [place] # (Auto) 0.6 Eos # (Auto) 0.0 Baso # (Auto) 0.0 Abs Immat Gran (auto) 0.05 H Absolute Neuts (auto) 9.4 H Absolute Nucleated RBC 0.000 Nucleated RBC % (auto) 0.0 Sodium 138 Potassium 5.0 Chloride 104 Carbon Dioxide 23 Anion Gap 16 BUN 16 Creatinine 1.04 Estim Creat Clear Calc 60.4 Estimated GFR 55 Random Glucose 186 H D Calcium 9.8 Total Bilirubin 0.6 AST 17 D ALT 14 Alkaline Phosphatase 62 D Total Protein 8.0 Albumin 4.4 Urine Color YELLOW Urine Appearance HAZY Urine pH 5.5 Ur Specific [place] >= 1.030 H Urine Protein 1+ H Urine Glucose (UA) NEG Urine Ketones NEG Urine Blood 3+ H Urine Nitrite NEG Ur Leukocyte Esterase NEG Urine RBC 76-150 H Urine WBC 1-4 Ur Squamous Epith Cells 1+ Ur Renal Epithelial Cell TRACE Calcium Oxalate Crystal 1+ Urine Bacteria 1+ Granular Casts 0-2 Urine Mucus 2+ Urine Yeast 1+ COVID-19 ([facility]) COVID-19 Clin Com 01/27/21 01/27/21 01/27/21 01:19 06:14 06:14 WBC 6.8 RBC 4.33 Hgb 11.8 L Hct 36.7 L MCV 84.8 MCH 27.3 MCHC 32.2 RDW 15.9 Plt Count 263 MPV 10.1 Immature Gran % (Auto) 0.1 Neut % (Auto) 69.5 Lymph % (Auto) 23.2 [place] % (Auto) 6.8 Eos % (Auto) 0.1 Baso % (Auto) 0.3 Lymph # (Auto) 1.6 [place] # (Auto) 0.5 Eos # (Auto) 0.0 Baso # (Auto) 0.0 Abs Immat Gran (auto) 0.01 Absolute Neuts (auto) 4.7 Absolute Nucleated RBC 0.000 Nucleated RBC % (auto) 0.0 Sodium 141 Potassium 4.2 Chloride 108 Carbon Dioxide 25 Anion Gap 12 BUN 11 Creatinine 0.77 Estim Creat Clear Calc 81.5 Estimated GFR > 60 Random Glucose 118 H D Calcium 9.0 D Total Bilirubin AST ALT Alkaline Phosphatase Total Protein Albumin Urine Color Urine Appearance Urine pH Ur Specific [place] Urine Protein Urine Glucose (UA) Urine Ketones Urine Blood Urine Nitrite Ur Leukocyte Esterase Urine RBC Urine WBC Ur Squamous Epith Cells Ur Renal Epithelial Cell Calcium Oxalate Crystal Urine Bacteria Granular Casts Urine Mucus Urine Yeast COVID-19 ([facility]) Negative COVID-19 Clin Com See Note Airway Mallampati Class: II TM Dist: >3cm Neck ROM: Full
[2021-01-27] MEDS: Lactated Ringers 1,000 ML 100 ML IVCONT ×2 (16:12→18:49)
--- NOTE | 2021-01-27 16:46 | P.HPSUR_ITS ---
Pre-Procedural Eval Section A Date of Service: 01/27/21 Section B Chief Complaint: Pyelo, obstructing renal calculi w/ hydronephrosis Details of Present Illness: left distal ureteric stone Relevant Family History (Specify if Yes): No Relevant Social History: None Present Medications: see Short Stay Collaborative assessment Medical History: Significant History History of Previous Operations: No relevant previous surgery Allergies: Allergies Allergy/AdvReac Type Severity Reaction Status Date / Time oxycodone [OXYCODONE] Allergy Intermediate ITCHING/FAT Verified 01/27/21 07:07 IGUE/HEADAC HE Review of Systems Sugical H&P ROS: Negative: Constitution, Cardiovascular, Respiratory, Neurological, Psychiatric, Hem-Onc, Allergic/Immunologic, Gastrointestinal, Genitourinary, Musculoskeletal, Integumentary, Endocrine and Eyes/ Ears/Nose/Throat Exam Surgical H&P Exam: Normal: HEENT, Normal: Heart, Normal: Lungs, Normal: Extremities, Normal: Abdomen, Normal: Skin and Normal: Neurological Plan Diagnosis/Plan: Unchanged (Left retrograde, ureteroscopy, laser lithotripsy stent placement) I have reviewed the history and physical and performed a pertinent physical examination on my patient. No changes have occurred unless specified.
--- NOTE | 2021-01-27 17:40 | W.PM.OPN ---
Operative Note Operative Note Date of Service: 01/27/21 Narrative: PreOperative Diagnosis: Left distal ureteric stone Post Operative Diagnosis: Left distal ureteric stone Procedure: - cystoscopy, retrograde - left dilatation of ureteric orifice under fluoroscopy - leftureteroscopy, laser lithotripsy, stone basketing - left stent placement Surgeon: Dr Kush Troy Anesthesia: General Indications for procedure: Left distal ureteric stone 1 cm at mid distal left ureter. Recommendation for intervention with ureteroscopy as unlikely to pass. Does have mild hydronephrosis. Procedure: After informed consent was verified patient was brought to the operating placed in supine position. Anesthesia was administered per protocol. Patient was placed in modified dorsal lithotomy position and prepped and draped in a sterile fashion. Safety pause time-out and side of surgery confirmed. Antibiotics confirmed. Twenty-two Sammarinese cystoscope inserted per urethra. Both ureteric orifices normal position. Retrograde examination performed. Filling defects seen and mid distal ureter. Sensor guidewire placed. Chas dilator placed with dilatation under fluoroscopy. Semi rigid ureteroscopy performed. Three hundred sixty stella meter laser fiber used 6 and stone broken into small pieces. Sure catch basket used to remove segments that is sent for analysis. Used was after stone removed 6 Sammarinese by 24 cm double-J ureteric stent placed. Good coil seen in bladder and kidney. This is she tolerated procedure well was extubated in the operating room transferred in stable condition to the recovery area. Pathology: Stones Drains: 6 Sammarinese by 24 cm stent
[2021-01-27] MEDS: Phenazopyridine HCL 100 MG TABLET PO (18:06)
--- NOTE | 2021-01-27 18:22 | PM.EVENT ---
Event Note Date of Service: 01/27/21 Event Note: Patient seen and examined Still has abdominal pain/back pain Physical exam: Appearance: Alert.? Oriented X3.? has pain .? Eyes: Pupils equal, round and reactive to light.? Sclera nonicteric.? ENT: Pharynx normal.? Moist mucous membranes. cvs: rrr, [id number] , no murmur res: clear to auscultation ,no rhonchii or wheezing abd: no rebound or guarding , left flank pain, bs present. ext pulses present , no cyanosis ,Gait well balanced well coordinated. neuro: axo3 , nonfocal. Assessment and plan coordinated in H and P note. Will continue continue IV antibiotics-IV ceftriaxone Urology consult pending for possible stenting patient has hydronephrosis.
[2021-01-28] MEDS: cefTRIAXone sodium 1 GM in 0.9 % Sodium Chloride 50 ML IV (01:28)
[2021-01-28] MEDS: traMADoL HCL 50 MG TABLET PO (02:10)
[2021-01-28 03:39] VITALS: BP 140/76; PULSE 62; RESP 16; TEMP 36.1; O2SAT 98
[2021-01-28] MEDS: Lactated Ringers 1,000 ML 100 ML IVCONT (06:08)
[2021-01-28 07:43] VITALS: BP 169/85; PULSE 65; RESP 18; TEMP 36.7; O2SAT 99
--- NOTE | 2021-01-28 10:34 | PM.DS ---
DS: Providers Provider Date of Service: 01/28/21 Date of admission: 01/27/21 01:10 Date of discharge: 01/28/21 Primary care physician: Emerson Smith MD Consults: 01/27/21 01:40 Consult to Urology Routine Consulting Provider: Kush Troy Reason for consultation: obstructing stone w hydronephrosis Has provider been notified: Yes DS: Diagnosis Discharge Diagnosis (1) Ureteral obstruction: Status: Acute (2) Hydronephrosis with renal and ureteral calculous obstruction: Status: Acute DS: Summary Hospital Course Hospital Course: 55-year-old female with past medical history of kidney stone presents to the hospital with complaints of left flank pain radiating to the groin area as well as suprapubic pain.? Patient reports that she has history of kidney stones but developed pain in the flank region on Saturday night.? She has also had nausea with some vomiting, denies any fever but some chills, she is also reporting decreased urine output.? She denies any diarrhea or constipation.? Denies any chest pain, no shortness of breath, no headache or change in vision, no numbness or tingling.? No lower extremity edema. On arrival to the ED patient found to have a temp of 98, respiratory rate of 16, heart rate of 73, blood pressure of 202/104, satting 98% on room air.? Patient's blood pressure is 148/82 at this time after receiving pain medications Labs on arrival are significant for WBC count of 11.2, otherwise unremarkable.? UA is positive for blood, RBC, bacteria, WBC with no leukocyte esterase or nitrite CT abdomen is showing large 1 cm distal left ureteral obstructing calculus with associated hydronephrosis and dilated dictation of the ureter with evidence of foreign ACL rupture and perinephric and periureteric fluid. Hospital course:Pyelo, obstructing renal calculi w/ hydronephrosis- Patient was started on IV antibiotics- ceftriaxone, gentle hydration, subsequently seen by Urology hadLeft retrograde, ureteroscopy, laser lithotripsy stent placement yesterday afterwards patient is feeling better, urine cultures are pending but so far nothing grew, discussed with Urology recommended p.o. antibiotics course for now. patient will go home with p.o. antibiotics further management out patiently as per Urology. Above management discussed with the patient in detail length she understand and in agreement with the above plan- including hydronephrosis, kidney stone, probably pyelonephritis and antibiotic use in detail., time spent 60 minutes and 50% time spent on counseling. Significant findings: As above. Procedures performed: None. Treatment and response: As above. Complications: None. Time Spent with Patient Time attestation: Total time spent providing and/or coordinating discharge services: Discharge coordination time: Greater than 30 minutes Quality: Stroke Does the patient have a stroke diagnosis?: No Physical Exam Vital Signs: Vital Signs: Last Vital Signs Temp 98.1 F 01/28/21 07:43 Pulse 65 01/28/21 07:43 Resp 18 01/28/21 07:43 BP 169/85 H 01/28/21 07:43 Pulse Ox 99 01/28/21 07:43 Body Mass Index 27.4 Physical exam: Appearance: Alert.? Oriented X3.? not in distress.? Eyes: Pupils equal, round and reactive to light.? Sclera nonicteric.? ENT: Pharynx normal.? Moist mucous membranes. cvs: rrr, [id number] , no murmur res: clear to auscultation ,no rhonchii or wheezing abd: no rebound or guarding ,nt, bs present. ext pulses present , no cyanosis ,Gait well balanced well coordinated. neuro: axo3 , nonfocal. DS: Data Data Completed and Pending Pending studies at discharge: Pending at discharge 01/27/21 17:33 Surgical [PTH] Routine Discharge Plan Discharge Patient Disposition: Home, Self-Care Discharge Diagnosis: Distal left ureteric stone, uti Referrals: Kush Troy MD [Physician] - 1 Week Emerson Smith MD [Primary Care Provider] - None Discharge Medications: New phenazopyridine [Pyridium] 100 mg tablet 100 mg PO TID PRN (Reason: spasm) 4 Days Qty: 12 RF: 0 tramadol 50 mg tablet 50 mg PO Q6H PRN (Reason: pain (scale score 4-6)) Qty: 14 RF: 0 tamsulosin 0.4 mg capsule 0.4 mg PO BEDTIME 14 Days Qty: 14 RF: 0 cefuroxime axetil 250 mg tablet 250 mg PO Q12H Qty: 12 RF: 0 Continued diltiazem HCl 180 mg capsule,extended release 24hr 1 cap PO BEDTIME RF: 0 tizanidine 4 mg tablet 1 tab PO BEDTIME RF: 0 famotidine 40 mg tablet 1 tab PO DAILY RF: 0 meloxicam 7.5 mg tablet 1 tab PO QAM PRN (Reason: Pain) RF: 0 losartan 100 mg tablet 1 tab PO DAILY RF: 0 cyclobenzaprine 5 mg tablet 1 tab PO QAM RF: 0 gabapentin 300 mg capsule 300 mg PO DAILY RF: 0 Discharge Orders: Discharge Order (Routine); Ordered 01/27/21 Ordered By: Kush Troy Diet: advance to usual diet Activity on Discharge: As tolerated Stand Alone Forms: Patient Portal Discharge page Care Plan Goals: Stone probable UTI, urine culture pending but patient see much better, we will switch to p.o. Ceftin upon discharge further management outpatient as per Urology. Health Concerns: Stone Plan of Treatment: Stone Assessment: Stone
--- NOTE | 2021-01-28 10:51 | MHC.CM.PN ---
CM MET WITH PT WHO REPORTS SHE LIVES AT HOME WITH HER S/O AND IS FULLY INDEPENDENT WITH ALL CARE AND IS EMPLOYED. PT DENIES USE OF DME OR HOME SERVICES. SHE CONFIRMS HER PCP IS KIRK HARRIS. PT DOES NOT HAVE A HCP AND DECLINES TO COMPLETE ONE TODAY. CURRENT DC PLAN IS HOME TODAY WITH NO SERVICES PTS S/O IS PRESENT TO TRANSPORT
[2021-02-01 23:07] LABS: Stone Source LT URETER
== END 2021-01-28 11:10 | disposition home or self-care (01) | DRG 446 ==
LOC: HO.ED 01-27 01:03 → HO.EDOVER 01-27 01:28 → HO.S3 01-27 11:03
PROVIDERS: Urology; Admitting Provider Internal Medicine; Emergency Provider Student in an Organized Health Care Education/Training Program; PCP Family Medicine; Visit Provider Internal Medicine
PROC: 0TC78ZZ Extirpation of Matter from Left Ureter, Via Natural or Artificial Opening Endoscopic (ICD-10-PCS; principal; 2021-01-27 16:30)
DX: N13.6 Pyonephrosis (principal); D72.829 Elevated white blood cell count, unspecified; M79.7 Fibromyalgia; I16.9 Hypertensive crisis, unspecified; Z20.822 Contact with and (suspected) exposure to COVID-19; Z87.442 Personal history of urinary calculi; Z88.5 Allergy status to narcotic agent; Z79.899 Other long term (current) drug therapy
CPT/HCPCS: 36415; 74177; 80048; 80053; 81001; 82365; 85025; 87086; 87635; 88300; 96361; 96375; 99285; C1758; C1769; C2617; J0696; J1100; J1885; J2250; J2270; J2405; J3010; Q9967

== ENCOUNTER → 2021-02-10 14:20 | Outpatient (BNVA) | payer OTHER, SELFPAY | PROVIDERS: PCP Family Medicine; Visit Provider Urology | DX: N20.0 Calculus of kidney (principal) | CPT/HCPCS: 52310; 99212 ==

== ENCOUNTER 2021-04-04 09:30 | Outpatient (REF) | payer OTHER, SELFPAY ==
--- NOTE | ~2021-04-04 | US_ITS ---
EXAMINATION: US RETROPERITONEAL LIMITED (RENAL ONLY) CLINICAL INFORMATION: Calculus of kidney. COMPARISON: CT abdomen and pelvis 01/26/2021. Abdominal ultrasound 02/08/2020. TECHNIQUE: Real-time imaging of the kidneys. FINDINGS: RIGHT KIDNEY: 11.1 x 4.8 x 5.3 cm (SAG x AP x TRV). The kidney is normal in size, contour, and echogenicity. Renal cortical thickness is normal. No renal calculi or hydronephrosis. There is anechoic cyst in the upper pole measuring 2.5 x 2.4 x 2.9 cm. There are multiple punctate calcification seen without twinkling artifact. LEFT KIDNEY: 10.0 x 4.6 x 5.1 cm (SAG x AP x TRV). The kidney is normal in size, contour, and echogenicity. Renal cortical thickness is normal. No focal parenchymal lesions or hydronephrosis. There are multiple punctate calcification seen throughout, largest with twinkling artifact. There are 2 echogenic stones in lower pole without calcification measuring 0.7 x 0.3 cm and 0.7 to 0.5 cm. US/US renal BI IMPRESSION: Bilateral multiple punctate calcifications. In addition, there are 2 echogenic stones without caliectasis in the lower pole left kidney. There is an anechoic cyst in the upper pole measuring 2.5 x 2.4 x 2.9 cm.
== END 2021-04-04 09:31 | disposition home or self-care (01) ==
LOC: HO.US 09:30
PROVIDERS: PCP Family Medicine; Visit Provider Urology
DX: N20.0 Calculus of kidney (principal)
CPT/HCPCS: 76775

== ENCOUNTER 2021-06-12 09:49 | Outpatient (REF) | payer OTHER, SELFPAY ==
--- NOTE | ~2021-06-12 | XR_ITS ---
EXAMINATION: XR CHEST CLINICAL INFORMATION: Left chest wall pain COMPARISON: Previous chest x-ray February 2020 TECHNIQUE: 2 views of the chest were obtained. FINDINGS: The cardiac and mediastinal contours are normal. The lungs are clear. There is no pleural effusion or pneumothorax. There are degenerative changes of the thoracic spine. There are postsurgical changes to the cervical spine. XR/XR chest 2V IMPRESSION: No evidence for acute disease in the chest.
== END 2021-06-12 09:50 | disposition home or self-care (01) ==
LOC: HO.XRAY 09:49
PROVIDERS: PCP Family Medicine; Visit Provider Family Medicine
DX: R07.9 Chest pain, unspecified (principal)
CPT/HCPCS: 71046

== ENCOUNTER 2021-08-15 14:49 | Outpatient (REF) | payer OTHER, SELFPAY ==
--- NOTE | ~2021-08-15 | MM_ITS ---
EXAMINATION: MM SCREENING DIGITAL BREAST TOMOSYNTHESIS, BILATERAL CLINICAL INFORMATION: Screening. Asymptomatic. The lifetime risk of breast cancer based on the Tyrer-Cuzick Model is 7%. COMPARISON: Mammography: 05/23/2020, 05/18/2019, 11/27/2017 TECHNIQUE: Digital mammography is performed in craniocaudal and mediolateral oblique views along with computer-aided detection (CAD). Digital breast tomosynthesis is performed in implant-displaced craniocaudal and implant-displaced mediolateral oblique views along with computer-aided detection (CAD). Synthesized 2D images are generated from the tomosynthesis. FINDINGS: There are scattered areas of fibroglandular density (ACR BI-RADS breast composition Category b). There are no significant masses, abnormal calcifications, or other abnormalities. Parenchymal pattern is similar to prior studies. The implant contours are smooth and similar to prior exams. No significant changes. MM/MM tomosynthesis screen imp BI IMPRESSION: No mammographic evidence of malignancy. ASSESSMENT: BI-RADS 1: Negative RECOMMENDATION: Routine annual mammography screening. This patient's information was entered into a reminder system with a target due date for their next mammogram.
== END 2021-08-15 14:50 | disposition home or self-care (01) ==
LOC: HO.MAMMO 14:49
PROVIDERS: Visit Provider Family Medicine
DX: Z12.31 Encounter for screening mammogram for malignant neoplasm of breast (principal)
CPT/HCPCS: 77063; 77067

== ENCOUNTER 2021-09-27 15:51 | Outpatient (REF) | payer OTHER, SELFPAY ==
--- NOTE | ~2021-09-27 | XR_ITS ---
EXAMINATION: XR CHEST CLINICAL INFORMATION: Asthma COMPARISON: Chest radiographs 06/12/2021, 02/26/2020 TECHNIQUE: 2 views of the chest were obtained. FINDINGS: The lungs are clear. There is no hyperinflation. No airspace consolidation or groundglass opacity or effusion. Heart size normal. Vascularity normal. The hilar and mediastinal contours are normal. No acute bony abnormality. XR/XR chest 2V IMPRESSION: Unremarkable examination.
[2021-09-27 16:07] LABS: MANUAL DIFF FLAG NO
[2021-09-27 16:54] LABS: Basophils Percent Auto 0.4 % (0-2); Eosinophils Absolute Auto 0.1 X10*3/uL (0.0-0.4); Eosinophils Percent Auto 1.8 % (0-4); Hematocrit 42.8 % (37.0-47.0); Hemoglobin 13.9 g/dl (12.0-16.0); Imm Gran Abs Auto 0.02 X10*3/uL (0.00-0.03); Imm Gran Pct Auto 0.4 % (0.0-0.4); Lymphocytes Percent Auto 36.8 % (20-40); Mean Corpuscular HGB Conc 32.5 g/dl (31.0-35.0); Mean Corpuscular Hemoglobin 29.9 pg (27.0-33.0); Mean Platelet Volume 10.4 fL (9.4-12.3); Monocytes Absolute Auto 0.3 X10*3/uL (0.1-1.2); Neutrophils Percent Auto 54.6 % (45-73); Platelet Count 204 X10*3/uL (160-400); Red Blood Count 4.65 X10*6/uL (4.20-5.50); Red Cell Distribution Width 13.9 % (11.0-16.0); White Blood Count 5.5 X10*3/uL (4.8-10.8)
[2021-09-27 16:57] LABS: Appearance Urine CLEAR; Color Urine YELLOW; Glucose Urine UA NEG (NEG); Leukocyte Esterase Urine NEG (NEG); Nitrite Urine NEG (NEG); PH 5.5 (5.0-8.0); Specific Gravity - Urine >= 1.030 (1.005-1.025); Urine Blood NEG (NEG); Urine Ketones NEG (NEG); Urine Protein NEG (NEG-TRACE)
[2021-09-27 17:04] LABS: Estimated Average Glucose 143 mg/dL; Hemoglobin A1c % 6.6 %
[2021-09-27 17:07] LABS: INTERNATIONAL NORM RATIO 0.9 (0.9-1.1)
[2021-09-27 17:10] LABS: Partial Thromboplastin Time 32.3 SEC (24.1-38.0)
[2021-09-27 17:13] LABS: Alanine Aminotransferase 21 U/L (0-31); Albumin Level 4.5 g/dL (3.5-5.0); Alkaline Phosphatase 58 U/L (39-117); Anion Gap 14 (12-20); Aspartate Amino Transferase 13 U/L (5-31); Bilirubin Total 0.4 mg/dL (0.0-1.0); Blood Urea Nitrogen 16 mg/dL (9-16); Calcium 10.2 mg/dL (8.4-10.2); Carbon Dioxide 28 mmol/L (22-29); Chloride 103 mmol/L (96-108); Estimated Glomerular Filt Rate > 60; Glucose Random 155 mg/dL (60-115); Potassium 4.2 mmol/L (3.3-5.1); Sodium 141 mmol/L (135-145); Total Protein 7.8 g/dL (6.5-8.0)
[2021-09-27 17:34] LABS: HCG Quantitative < 2 mIU/mL; T4 Thyroxine 6.9 ug/dL (4.5-12.0); Thyroid Stimulating Hormone 0.67 uIU/mL (0.32-4.0)
[2021-09-28 05:58] LABS: HIV AB/AG Nonreactive (Nonreactive); HIV Num 1 0.09 S/CO (0.00-0.99)
[2021-09-29 04:46] LABS: Triiodothyronine T3 Free 2.8 pg/mL (2.3-4.2)
== END 2021-09-27 15:52 | disposition home or self-care (01) ==
LOC: HO.LAB 15:51
PROVIDERS: PCP Family Medicine; Visit Provider Otolaryngology
DX: Z01.818 Encounter for other preprocedural examination (principal); J45.909 Unspecified asthma, uncomplicated
CPT/HCPCS: 36415; 71046; 80053; 81003; 83036; 84436; 84443; 84481; 84702; 85025; 85610; 85730; 87389

== ENCOUNTER → 2021-09-28 06:29 | Outpatient (REF) | payer OTHER, SELFPAY ==
--- NOTE | 2021-09-28 06:42 | ECG_ITS ---
Test Reason : preop Blood Pressure : / mmHG Vent. Rate : 061 BPM Atrial Rate : 061 BPM P-R Int : 158 ms QRS Dur : 082 ms QT Int : 394 ms P-R-T Axes : 005 009 -21 degrees QTc Int : 396 ms Normal sinus rhythm Septal infarct (cited on or before 10-AUG-2019) Abnormal ECG When compared with ECG of 26-FEB-2020 10:32, ST no longer depressed in Anterior leads Nonspecific T wave abnormality now evident in Lateral leads Referred By: Carlos Ballard Electronically Signed By:VICKI SHARMA MD
== END ==
LOC: HO.CARD 06:29
PROVIDERS: PCP Family Medicine; Visit Provider Otolaryngology
DX: Z01.810 Encounter for preprocedural cardiovascular examination (principal)
CPT/HCPCS: 93005

== ENCOUNTER 2021-12-18 06:52 | Outpatient (REF) | payer OTHER, SELFPAY ==
[2021-12-18 07:29] LABS: Basophils Percent Auto 0.5 % (0-2); Eosinophils Absolute Auto 0.1 X10*3/uL (0.0-0.4); Eosinophils Percent Auto 1.3 % (0-4); Hematocrit 38.4 % (37.0-47.0); Hemoglobin 12.3 g/dl (12.0-16.0); Imm Gran Abs Auto 0.02 X10*3/uL (0.00-0.03); Imm Gran Pct Auto 0.4 % (0.0-0.4); Lymphocytes Absolute Auto 1.6 X10*3/uL (1.2-4.9); Lymphocytes Percent Auto 29.3 % (20-40); MANUAL DIFF FLAG NO; Mean Corpuscular Hemoglobin 29.5 pg (27.0-33.0); Mean Corpuscular Volume 92.1 fL (80.0-98.0); Mean Platelet Volume 9.9 fL (9.4-12.3); Monocytes Absolute Auto 0.5 X10*3/uL (0.1-1.2); Neutrophils Absolute Auto 3.3 x10*3/uL (2.0-8.3); Neutrophils Percent Auto 59.5 % (45-73); Platelet Count 223 X10*3/uL (160-400); Red Blood Count 4.17 X10*6/uL (4.20-5.50); Red Cell Distribution Width 13.1 % (11.0-16.0); White Blood Count 5.5 X10*3/uL (4.8-10.8)
[2021-12-18 08:23] LABS: Alanine Aminotransferase 8 U/L (0-31); Albumin Level 3.7 g/dL (3.5-5.0); Alkaline Phosphatase 51 U/L (39-117); Anion Gap 14 (12-20); Aspartate Amino Transferase 10 U/L (5-31); Bilirubin Total 0.6 mg/dL (0.0-1.0); Blood Urea Nitrogen 11 mg/dL (9-16); Calcium 8.7 mg/dL (8.4-10.2); Carbon Dioxide 25 mmol/L (22-29); Chloride 104 mmol/L (96-108); Cholesterol 146 mg/dL; Estimated Glomerular Filt Rate > 60; Glucose Random 141 mg/dL (60-115); HDL Cholesterol 46 mg/dL; LDL Cholesterol Calculated 69 mg/dl; Potassium 3.9 mmol/L (3.3-5.1); Sodium 139 mmol/L (135-145); Total Protein 6.5 g/dL (6.5-8.0); Triglycerides 155 mg/dL
[2021-12-18 08:46] LABS: Thyroid Stimulating Hormone 1.49 uIU/mL (0.32-4.0)
== END 2021-12-18 06:53 | disposition home or self-care (01) ==
LOC: HO.LAB 06:52
PROVIDERS: PCP Internal Medicine; Visit Provider Internal Medicine
DX: Z00.00 Encounter for general adult medical examination without abnormal findings (principal); I10 Essential (primary) hypertension; N20.0 Calculus of kidney; M79.7 Fibromyalgia
CPT/HCPCS: 36415; 80053; 80061; 84443; 85025

== ENCOUNTER 2022-04-04 06:24 | Outpatient (REF) | payer OTHER, SELFPAY ==
[2022-04-04 08:04] LABS: Alanine Aminotransferase 14 U/L (0-31); Alkaline Phosphatase 57 U/L (39-117); Anion Gap 12 (12-20); Aspartate Amino Transferase 12 U/L (5-31); Bilirubin Total 0.5 mg/dL (0.0-1.0); Blood Urea Nitrogen 10 mg/dL (9-16); Carbon Dioxide 27 mmol/L (22-29); Chloride 105 mmol/L (96-108); Estimated Glomerular Filt Rate > 60; Glucose Random 103 mg/dL (60-115); Potassium 4.4 mmol/L (3.3-5.1); Sodium 140 mmol/L (135-145); Total Protein 6.8 g/dL (6.5-8.0)
[2022-04-04 09:28] LABS: Estimated Average Glucose 134 mg/dL; Hemoglobin A1c % 6.3 %
== END 2022-04-04 06:25 | disposition home or self-care (01) ==
LOC: HO.LAB 06:24
PROVIDERS: PCP Internal Medicine; Visit Provider Internal Medicine
DX: I10 Essential (primary) hypertension (principal); M79.7 Fibromyalgia; N20.0 Calculus of kidney; R73.01 Impaired fasting glucose
CPT/HCPCS: 36415; 80053; 83036

== ENCOUNTER 2022-06-19 15:30 | Outpatient (REF) | payer OTHER, SELFPAY ==
[2022-06-19 16:37] LABS: Alanine Aminotransferase 13 U/L (0-31); Albumin Level 4.1 g/dL (3.5-5.0); Alkaline Phosphatase 62 U/L (39-117); Anion Gap 17 (12-20); Aspartate Amino Transferase 13 U/L (5-31); Bilirubin Total 0.5 mg/dL (0.0-1.0); Blood Urea Nitrogen 20 mg/dL (9-16); Calcium 9.7 mg/dL (8.4-10.2); Carbon Dioxide 29 mmol/L (22-29); Chloride 98 mmol/L (96-108); Estimated Glomerular Filt Rate > 60; Glucose Random 207 mg/dL (60-115); Potassium 3.7 mmol/L (3.3-5.1); Sodium 140 mmol/L (135-145); Total Protein 7.2 g/dL (6.5-8.0)
[2022-06-19 16:38] LABS: Estimated Average Glucose 180 mg/dL; Hemoglobin A1c % 7.9 %
== END 2022-06-19 15:31 | disposition home or self-care (01) ==
LOC: HO.LAB 15:30
PROVIDERS: PCP Internal Medicine; Visit Provider Internal Medicine
DX: I10 Essential (primary) hypertension (principal); R73.01 Impaired fasting glucose
CPT/HCPCS: 36415; 80053; 83036

== ENCOUNTER 2022-07-31 11:32 | Outpatient (REF) | payer OTHER, SELFPAY ==
[2022-07-31 13:35] LABS: Alanine Aminotransferase 15 U/L (0-31); Albumin Level 4.3 g/dL (3.5-5.0); Alkaline Phosphatase 55 U/L (39-117); Anion Gap 14 (12-20); Aspartate Amino Transferase 11 U/L (5-31); Bilirubin Total 0.4 mg/dL (0.0-1.0); Blood Urea Nitrogen 17 mg/dL (9-16); Calcium 9.5 mg/dL (8.4-10.2); Carbon Dioxide 32 mmol/L (22-29); Chloride 100 mmol/L (96-108); Estimated Glomerular Filt Rate > 60; Glucose Random 192 mg/dL (60-115); Potassium 4.2 mmol/L (3.3-5.1); Sodium 142 mmol/L (135-145); Total Protein 7.4 g/dL (6.5-8.0)
[2022-07-31 14:22] LABS: Estimated Average Glucose 157 mg/dL; Hemoglobin A1c % 7.1 %
== END 2022-07-31 11:33 | disposition home or self-care (01) ==
LOC: HO.LAB 11:32
PROVIDERS: PCP Internal Medicine; Visit Provider Internal Medicine
DX: I10 Essential (primary) hypertension (principal); R73.01 Impaired fasting glucose
CPT/HCPCS: 36415; 80053; 83036

== ENCOUNTER → 2022-08-22 10:36 | Outpatient (BNVA) | payer OTHER, SELFPAY | PROVIDERS: PCP Internal Medicine; Visit Provider Surgery | DX: Z12.11 Encounter for screening for malignant neoplasm of colon (principal) | CPT/HCPCS: 99202 ==

== ENCOUNTER 2022-09-11 07:42 | Outpatient (REF) | payer OTHER, SELFPAY ==
--- NOTE | ~2022-09-11 | MM_ITS ---
EXAMINATION: MM SCREENING DIGITAL BREAST TOMOSYNTHESIS, BILATERAL CLINICAL INFORMATION: Screening. Asymptomatic. The lifetime risk of breast cancer based on the Tyrer-Cuzick Model is 6.1%. COMPARISON: Mammography: August 15, 2021 and studies dating back to May 07, 2014 TECHNIQUE: Digital mammography is performed in craniocaudal and mediolateral oblique views along with computer-aided detection (CAD). Digital breast tomosynthesis is performed in implant-displaced craniocaudal and implant-displaced mediolateral oblique views along with computer-aided detection (CAD). Synthesized 2D images are generated from the tomosynthesis. FINDINGS: There are scattered areas of fibroglandular density (ACR BI-RADS breast composition Category b). There are no significant masses, abnormal calcifications, or other abnormalities. Implant contours are unremarkable. MM/MM tomosynthesis screen imp BI IMPRESSION: There are no significant changes from prior study. ASSESSMENT: BI-RADS 1: Negative RECOMMENDATION: Routine annual mammography screening. This patient's information was entered into a reminder system with a target due date for their next mammogram.
== END 2022-09-11 07:43 | disposition home or self-care (01) ==
LOC: HO.MAMMO 07:42
PROVIDERS: PCP Internal Medicine; Visit Provider Internal Medicine
DX: Z12.31 Encounter for screening mammogram for malignant neoplasm of breast (principal)
CPT/HCPCS: 77063; 77067

== ENCOUNTER 2022-09-13 16:17 | Outpatient (REF) | payer OTHER, SELFPAY ==
[2022-09-13 16:35] LABS: MANUAL DIFF FLAG NO
[2022-09-13 17:28] LABS: Basophils Percent Auto 0.5 % (0-2); Eosinophils Absolute Auto 0.1 X10*3/uL (0.0-0.4); Eosinophils Percent Auto 1.4 % (0-4); Hematocrit 24.1 % (37.0-47.0); Hemoglobin 7.5 g/dl (12.0-16.0); Imm Gran Abs Auto 0.04 X10*3/uL (0.00-0.03); Imm Gran Pct Auto 0.7 % (0.0-0.4); Lymphocytes Percent Auto 34.1 % (20-40); Mean Corpuscular HGB Conc 31.1 g/dl (31.0-35.0); Mean Corpuscular Hemoglobin 28.3 pg (27.0-33.0); Mean Corpuscular Volume 90.9 fL (80.0-98.0); Mean Platelet Volume 9.9 fL (9.4-12.3); Monocytes Absolute Auto 0.5 X10*3/uL (0.1-1.2); Monocytes Percent Auto 7.9 % (2-11); Neutrophils Absolute Auto 3.3 x10*3/uL (2.0-8.3); Neutrophils Percent Auto 55.4 % (45-73); Platelet Count 348 X10*3/uL (160-400); Red Blood Count 2.65 X10*6/uL (4.20-5.50); Red Cell Distribution Width 13.5 % (11.0-16.0); White Blood Count 5.9 X10*3/uL (4.8-10.8)
[2022-09-13 18:17] LABS: Ferritin 14 ng/mL (10-250); Vitamin B12 878 pg/mL (200-900)
== END 2022-09-13 16:18 | disposition home or self-care (01) ==
LOC: HO.LAB 16:17
PROVIDERS: PCP Internal Medicine; Visit Provider Internal Medicine
DX: D64.9 Anemia, unspecified (principal); H81.13 Benign paroxysmal vertigo, bilateral; H93.13 Tinnitus, bilateral; M67.813 Other specified disorders of tendon, right shoulder; M67.814 Other specified disorders of tendon, left shoulder
CPT/HCPCS: 36415; 82607; 82728; 85025

== ENCOUNTER 2022-10-16 11:07 | Outpatient (REF) | payer OTHER, SELFPAY | END 2022-10-16 11:08 | disposition home or self-care (01) | LOC: HO.MDS 11:07 | PROVIDERS: Visit Provider Internal Medicine | DX: D50.8 Other iron deficiency anemias (principal) | CPT/HCPCS: 96365; J1756 ==

== ENCOUNTER 2022-10-17 08:05 | Outpatient (REF) | payer OTHER, SELFPAY | END 2022-10-17 08:06 | disposition home or self-care (01) | LOC: HO.MDS 08:05 | PROVIDERS: Visit Provider Internal Medicine | DX: D50.8 Other iron deficiency anemias (principal) | CPT/HCPCS: 96365; J1756 ==

== ENCOUNTER 2022-10-18 08:35 | Outpatient (REF) | payer OTHER, SELFPAY | END 2022-10-18 08:36 | disposition home or self-care (01) | LOC: HO.MDS 08:35 | PROVIDERS: Visit Provider Internal Medicine | DX: D50.8 Other iron deficiency anemias (principal) | CPT/HCPCS: 96365; J1756 ==

== ENCOUNTER 2022-10-19 08:27 | Outpatient (REF) | payer OTHER, SELFPAY | END 2022-10-19 08:28 | disposition home or self-care (01) | LOC: HO.MDS 08:27 | PROVIDERS: Visit Provider Internal Medicine | DX: D50.8 Other iron deficiency anemias (principal) | CPT/HCPCS: 96365; J1756 ==

== ENCOUNTER 2022-10-22 08:45 | Outpatient (REF) | payer OTHER, SELFPAY | END 2022-10-22 08:46 | disposition home or self-care (01) | LOC: HO.MDS 08:45 | PROVIDERS: Visit Provider Internal Medicine | DX: D50.8 Other iron deficiency anemias (principal) | CPT/HCPCS: 96365; J1756 ==

== ENCOUNTER 2022-12-06 14:28 | Outpatient (REF) | payer OTHER, SELFPAY ==
[2022-12-06 14:44] LABS: MANUAL DIFF FLAG NO
[2022-12-06 15:55] LABS: Basophils Percent Auto 0.4 % (0-2); Eosinophils Absolute Auto 0.1 X10*3/uL (0.0-0.4); Eosinophils Percent Auto 1.2 % (0-4); Hematocrit 37.9 % (37.0-47.0); Hemoglobin 12.2 g/dl (12.0-16.0); Imm Gran Abs Auto 0.02 X10*3/uL (0.00-0.03); Imm Gran Pct Auto 0.4 % (0.0-0.4); Lymphocytes Percent Auto 38.3 % (20-40); Mean Corpuscular HGB Conc 32.2 g/dl (31.0-35.0); Mean Corpuscular Hemoglobin 27.5 pg (27.0-33.0); Mean Corpuscular Volume 85.4 fL (80.0-98.0); Mean Platelet Volume 10.5 fL (9.4-12.3); Monocytes Absolute Auto 0.3 X10*3/uL (0.1-1.2); Monocytes Percent Auto 5.5 % (2-11); Neutrophils Absolute Auto 2.8 x10*3/uL (2.0-8.3); Neutrophils Percent Auto 54.2 % (45-73); Platelet Count 249 X10*3/uL (160-400); Red Blood Count 4.44 X10*6/uL (4.20-5.50); Red Cell Distribution Width 20.6 % (11.0-16.0); White Blood Count 5.1 X10*3/uL (4.8-10.8)
[2022-12-06 16:59] LABS: Ferritin 127 ng/mL (10-250)
== END 2022-12-06 14:29 | disposition home or self-care (01) ==
LOC: HO.LAB 14:28
PROVIDERS: PCP Internal Medicine; Visit Provider Internal Medicine
DX: D50.8 Other iron deficiency anemias (principal); K92.1 Melena
CPT/HCPCS: 36415; 82728; 85025

== ENCOUNTER 2023-03-19 06:21 | Outpatient (REF) | payer OTHER, SELFPAY ==
[2023-03-19 06:56] LABS: MANUAL DIFF FLAG NO
[2023-03-19 07:30] LABS: Basophils Percent Auto 0.4 % (0-2); Eosinophils Absolute Auto 0.1 X10*3/uL (0.0-0.4); Eosinophils Percent Auto 1.6 % (0-4); Hematocrit 39.2 % (37.0-47.0); Imm Gran Abs Auto 0.03 X10*3/uL (0.00-0.03); Imm Gran Pct Auto 0.6 % (0.0-0.4); Lymphocytes Absolute Auto 2.3 X10*3/uL (1.2-4.9); Mean Corpuscular HGB Conc 33.2 g/dl (31.0-35.0); Mean Corpuscular Hemoglobin 31.5 pg (27.0-33.0); Mean Corpuscular Volume 94.9 fL (80.0-98.0); Mean Platelet Volume 10.4 fL (9.4-12.3); Monocytes Absolute Auto 0.3 X10*3/uL (0.1-1.2); Monocytes Percent Auto 5.5 % (2-11); Neutrophils Absolute Auto 2.3 x10*3/uL (2.0-8.3); Neutrophils Percent Auto 45.9 % (45-73); Platelet Count 238 X10*3/uL (160-400); Red Blood Count 4.13 X10*6/uL (4.20-5.50); Red Cell Distribution Width 13.8 % (11.0-16.0); White Blood Count 5.1 X10*3/uL (4.8-10.8)
[2023-03-19 07:47] LABS: Estimated Average Glucose 166 mg/dL; Hemoglobin A1c % 7.4 % (<6.0)
[2023-03-19 08:17] LABS: Alanine Aminotransferase 13 U/L (0-31); Albumin Level 4.2 g/dL (3.5-5.0); Alkaline Phosphatase 56 U/L (39-117); Anion Gap 16 (12-20); Aspartate Amino Transferase 11 U/L (5-31); Bilirubin Total 0.4 mg/dL (0.0-1.0); Blood Urea Nitrogen 17 mg/dL (9-16); Calcium 9.8 mg/dL (8.4-10.2); Carbon Dioxide 26 mmol/L (22-29); Chloride 103 mmol/L (96-108); Cholesterol 238 mg/dL (<200); Estimated Glomerular Filt Rate > 60; Glucose Random 172 mg/dL (60-115); HDL Cholesterol 46 mg/dL (>40); LDL Cholesterol Calculated 140 mg/dL (<100); Potassium 4.2 mmol/L (3.3-5.1); Sodium 141 mmol/L (135-145); Total Protein 7.5 g/dL (6.5-8.0); Triglycerides 260 mg/dL (<150); Uric Acid 5.3 mg/dL (2.4-5.7)
[2023-03-19 08:23] LABS: Thyroid Stimulating Hormone 1.71 uIU/mL (0.32-4.0)
[2023-03-19 09:43] LABS: Creatinine Urine 157.11 mg/dL; Microalbum/Creatinine Ratio Ur 4.4 ug/mg cr (<30)
== END 2023-03-19 06:22 | disposition home or self-care (01) ==
LOC: HO.LAB 06:21
PROVIDERS: PCP Internal Medicine; Visit Provider Internal Medicine
DX: Z00.00 Encounter for general adult medical examination without abnormal findings (principal); D50.0 Iron deficiency anemia secondary to blood loss (chronic); E11.40 Type 2 diabetes mellitus with diabetic neuropathy, unspecified; M10.9 Gout, unspecified; M79.7 Fibromyalgia
CPT/HCPCS: 36415; 80053; 80061; 82043; 82570; 83036; 84443; 84550; 85025

== ENCOUNTER 2023-06-20 06:02 | Outpatient (REF) | payer OTHER, SELFPAY ==
[2023-06-20 07:16] LABS: MANUAL DIFF FLAG NO
[2023-06-20 07:49] LABS: Basophils Percent Auto 0.6 % (0-2); Eosinophils Absolute Auto 0.1 X10*3/uL (0.0-0.4); Eosinophils Percent Auto 1.7 % (0-4); Hematocrit 38.8 % (37.0-47.0); Hemoglobin 13.1 g/dl (12.0-16.0); Imm Gran Abs Auto 0.01 X10*3/uL (0.00-0.03); Imm Gran Pct Auto 0.2 % (0.0-0.4); Lymphocytes Absolute Auto 2.2 X10*3/uL (1.2-4.9); Lymphocytes Percent Auto 46.5 % (20-40); Mean Corpuscular HGB Conc 33.8 g/dl (31.0-35.0); Mean Corpuscular Hemoglobin 30.5 pg (27.0-33.0); Mean Corpuscular Volume 90.4 fL (80.0-98.0); Mean Platelet Volume 11.1 fL (9.4-12.3); Monocytes Absolute Auto 0.3 X10*3/uL (0.1-1.2); Monocytes Percent Auto 6.1 % (2-11); Neutrophils Absolute Auto 2.1 x10*3/uL (2.0-8.3); Neutrophils Percent Auto 44.9 % (45-73); Platelet Count 214 X10*3/uL (160-400); Red Blood Count 4.29 X10*6/uL (4.20-5.50); Red Cell Distribution Width 12.1 % (11.0-16.0); White Blood Count 4.7 X10*3/uL (4.8-10.8)
[2023-06-20 08:02] LABS: Estimated Average Glucose 203 mg/dL; Hemoglobin A1c % 8.7 % (<6.0)
[2023-06-20 08:20] LABS: Alanine Aminotransferase 21 U/L (0-31); Albumin Level 4.3 g/dL (3.5-5.0); Alkaline Phosphatase 55 U/L (39-117); Anion Gap 14 (12-20); Aspartate Amino Transferase 12 U/L (5-31); Bilirubin Total 0.6 mg/dL (0.0-1.0); Blood Urea Nitrogen 14 mg/dL (9-16); Calcium 9.9 mg/dL (8.4-10.2); Carbon Dioxide 30 mmol/L (22-29); Chloride 100 mmol/L (96-108); Cholesterol 152 mg/dL (<200); Estimated Glomerular Filt Rate > 60; Glucose Random 192 mg/dL (60-115); HDL Cholesterol 39 mg/dL (>40); LDL Cholesterol Calculated 72 mg/dL (<100); Sodium 140 mmol/L (135-145); Total Protein 7.6 g/dL (6.5-8.0); Triglycerides 209 mg/dL (<150)
== END 2023-06-20 06:03 | disposition home or self-care (01) ==
LOC: HO.LAB 06:02
PROVIDERS: PCP Internal Medicine; Visit Provider Internal Medicine
DX: D50.0 Iron deficiency anemia secondary to blood loss (chronic) (principal); E11.40 Type 2 diabetes mellitus with diabetic neuropathy, unspecified; E78.00 Pure hypercholesterolemia, unspecified
CPT/HCPCS: 36415; 80053; 80061; 83036; 85025

== ENCOUNTER 2023-08-12 10:52 | Outpatient (REF) | payer OTHER, SELFPAY ==
--- NOTE | ~2023-08-12 | XR_ITS ---
EXAMINATION: XR FOOT, LEFT CLINICAL INFORMATION: Pain. COMPARISON: None available. TECHNIQUE: AP, lateral, and oblique views of the left foot. FINDINGS: There is a mild hallux valgus and metatarsus adductus configuration. There is moderate bunion formation of the first metatarsal head. No fracture, dislocation or left ankle joint effusion is seen. Boehler's angle is normal. There is no calcaneal spur. No focal soft tissue swelling, gas or foreign body is seen. XR/XR foot LT min 3V IMPRESSION: 1. No fracture, dislocation or left ankle joint effusion is seen. 2. There is a moderate hallux valgus configuration.
== END 2023-08-12 10:53 | disposition home or self-care (01) ==
LOC: HO.XRAY 10:52
PROVIDERS: PCP Internal Medicine; Visit Provider Internal Medicine
DX: M79.672 Pain in left foot (principal)
CPT/HCPCS: 73630

== ENCOUNTER 2023-09-17 07:35 | Outpatient (REF) | payer OTHER, SELFPAY ==
--- NOTE | ~2023-09-17 | MM_ITS ---
EXAMINATION: MM SCREENING DIGITAL BREAST TOMOSYNTHESIS, BILATERAL CLINICAL INFORMATION: Screening. Asymptomatic. COMPARISON: Mammography: This study is compared with prior mammograms dating back to 2019. TECHNIQUE: Digital mammography is performed in craniocaudal and mediolateral oblique views along with computer-aided detection (CAD). Digital breast tomosynthesis is performed in implant-displaced craniocaudal and implant-displaced mediolateral oblique views along with computer-aided detection (CAD). Synthesized 2D images are generated from the tomosynthesis. FINDINGS: There are scattered areas of fibroglandular density (ACR BI-RADS breast composition Category b). There are bilateral, retropectoral, mammographically intact silicone breast implants. There are no significant masses, abnormal calcifications, or other abnormalities. MM/MM tomosynthesis screen imp BI IMPRESSION: There are no significant changes from prior study. ASSESSMENT: BI-RADS BI-RADS 1 - Negative RECOMMENDATION: Routine annual mammography screening. 1 year F/U This patient's information was entered into a reminder system with a target due date for their next mammogram.
== END 2023-09-17 07:36 | disposition home or self-care (01) ==
LOC: HO.MAMMO 07:35
PROVIDERS: PCP Internal Medicine; Visit Provider Internal Medicine
DX: Z12.31 Encounter for screening mammogram for malignant neoplasm of breast (principal)
CPT/HCPCS: 77063; 77067

== ENCOUNTER → 2023-09-17 08:00 | Outpatient (BNV) | payer OTHER, SELFPAY | PROVIDERS: PCP Internal Medicine; Visit Provider Radiology Diagnostic Radiology | DX: Z12.31 Encounter for screening mammogram for malignant neoplasm of breast (principal) | CPT/HCPCS: 77063; 77067 ==

== ENCOUNTER 2023-09-20 06:53 | Outpatient (REF) | payer OTHER, SELFPAY ==
[2023-09-20 07:31] LABS: Estimated Average Glucose 166 mg/dL; Hemoglobin A1c % 7.4 % (<6.0)
[2023-09-20 08:20] LABS: Alanine Aminotransferase 15 U/L (0-31); Albumin Level 4.2 g/dL (3.5-5.0); Alkaline Phosphatase 53 U/L (39-117); Anion Gap 16 (12-20); Aspartate Amino Transferase 8 U/L (5-31); Bilirubin Total 0.4 mg/dL (0.0-1.0); Blood Urea Nitrogen 18 mg/dL (9-16); Calcium 9.8 mg/dL (8.4-10.2); Carbon Dioxide 28 mmol/L (22-29); Chloride 98 mmol/L (96-108); Estimated Glomerular Filt Rate > 60; Glucose Random 163 mg/dL (60-115); Potassium 3.6 mmol/L (3.3-5.1); Sodium 138 mmol/L (135-145); Total Protein 7.6 g/dL (6.5-8.0); Uric Acid 5.2 mg/dL (2.4-5.7)
== END 2023-09-20 06:54 | disposition home or self-care (01) ==
LOC: HO.LAB 06:53
PROVIDERS: PCP Internal Medicine; Visit Provider Internal Medicine
DX: E11.65 Type 2 diabetes mellitus with hyperglycemia (principal); E78.2 Mixed hyperlipidemia; I10 Essential (primary) hypertension; M10.9 Gout, unspecified; M54.9 Dorsalgia, unspecified; Z68.27 Body mass index [BMI] 27.0-27.9, adult
CPT/HCPCS: 36415; 80053; 83036; 84550

== ENCOUNTER 2023-12-27 06:50 | Outpatient (REF) | payer OTHER, SELFPAY ==
[2023-12-27 07:01] LABS: MANUAL DIFF FLAG NO
[2023-12-27 07:12] LABS: Basophils Percent Auto 0.1 % (0-2); Eosinophils Percent Auto 0.4 % (0-4); Hematocrit 45.9 % (37.0-47.0); Hemoglobin 15.6 g/dl (12.0-16.0); Imm Gran Abs Auto 0.06 X10*3/uL (0.00-0.03); Imm Gran Pct Auto 0.6 % (0.0-0.4); Lymphocytes Absolute Auto 1.1 X10*3/uL (1.2-4.9); Lymphocytes Percent Auto 11.1 % (20-40); Mean Corpuscular Hemoglobin 31.1 pg (27.0-33.0); Mean Corpuscular Volume 91.6 fL (80.0-98.0); Mean Platelet Volume 9.8 fL (9.4-12.3); Monocytes Absolute Auto 0.4 X10*3/uL (0.1-1.2); Monocytes Percent Auto 4.3 % (2-11); Neutrophils Absolute Auto 8.6 x10*3/uL (2.0-8.3); Neutrophils Percent Auto 83.5 % (45-73); Platelet Count 203 X10*3/uL (160-400); Red Blood Count 5.01 X10*6/uL (4.20-5.50); Red Cell Distribution Width 13.3 % (11.0-16.0); White Blood Count 10.3 X10*3/uL (4.8-10.8)
[2023-12-27 07:37] LABS: Alanine Aminotransferase 22 U/L (0-31); Albumin Level 4.5 g/dL (3.5-5.0); Alkaline Phosphatase 61 U/L (39-117); Anion Gap 15 (12-20); Aspartate Amino Transferase 17 U/L (5-31); Bilirubin Total 0.6 mg/dL (0.0-1.0); Blood Urea Nitrogen 22 mg/dL (9-16); Carbon Dioxide 28 mmol/L (22-29); Chloride 101 mmol/L (96-108); Cholesterol 157 mg/dL (<200); Estimated Glomerular Filt Rate > 60; Glucose Random 158 mg/dL (60-115); HDL Cholesterol 53 mg/dL (>40); LDL Cholesterol Calculated 63 mg/dL (<100); Potassium 3.9 mmol/L (3.3-5.1); Sodium 140 mmol/L (135-145); Total Protein 7.9 g/dL (6.5-8.0); Triglycerides 207 mg/dL (<150)
[2023-12-27 08:33] LABS: Creatinine Urine 173.04 mg/dL; Microalbum/Creatinine Ratio Ur 5.2 ug/mg cr (<30)
[2023-12-27 08:36] LABS: Estimated Average Glucose 171 mg/dL; Hemoglobin A1c % 7.6 % (<6.0)
== END 2023-12-27 06:51 | disposition home or self-care (01) ==
LOC: HO.LAB 06:50
PROVIDERS: PCP Internal Medicine; Visit Provider Internal Medicine
DX: E11.69 Type 2 diabetes mellitus with other specified complication (principal); M79.7 Fibromyalgia; Z68.27 Body mass index [BMI] 27.0-27.9, adult; D50.0 Iron deficiency anemia secondary to blood loss (chronic)
CPT/HCPCS: 36415; 80053; 80061; 82043; 82570; 83036; 85025

== ENCOUNTER 2024-03-27 06:20 | Outpatient (REF) | payer OTHER, SELFPAY ==
[2024-03-27 07:49] LABS: Estimated Average Glucose 146 mg/dL; Hemoglobin A1C 191.0375 umol/L; Hemoglobin A1c % 6.7 % (<6.0); Total Hemoglobin (HGBA1C) 3830.2311 umol/L
[2024-03-27 08:12] LABS: Alanine Aminotransferase 23 U/L (0-31); Albumin Level 4.4 g/dL (3.5-5.0); Alkaline Phosphatase 53 U/L (39-117); Anion Gap 16 (12-20); Aspartate Amino Transferase 17 U/L (5-31); Bilirubin Total 0.5 mg/dL (0.0-1.0); Blood Urea Nitrogen 16 mg/dL (9-16); Calcium 9.9 mg/dL (8.4-10.2); Carbon Dioxide 28 mmol/L (22-29); Chloride 100 mmol/L (96-108); Estimated Glomerular Filt Rate > 60; Glucose Random 167 mg/dL (60-115); Sodium 140 mmol/L (135-145); Total Protein 7.6 g/dL (6.5-8.0)
== END 2024-03-27 06:21 | disposition home or self-care (01) ==
LOC: HO.LAB 06:20
PROVIDERS: PCP Internal Medicine; Visit Provider Internal Medicine
DX: Z00.00 Encounter for general adult medical examination without abnormal findings (principal); E11.9 Type 2 diabetes mellitus without complications; E78.00 Pure hypercholesterolemia, unspecified; I10 Essential (primary) hypertension
CPT/HCPCS: 36415; 80053; 83036

== ENCOUNTER 2024-08-31 13:47 | Outpatient (REF) | payer OTHER, SELFPAY ==
[2024-08-31 13:59] LABS: MANUAL DIFF FLAG NO
[2024-08-31 14:58] LABS: Basophils Percent Auto 0.4 % (0-2); Eosinophils Absolute Auto 0.1 X10*3/uL (0.0-0.4); Eosinophils Percent Auto 1.1 % (0-4); Hematocrit 39.1 % (37.0-47.0); Hemoglobin 13.4 g/dl (12.0-16.0); Imm Gran Abs Auto 0.02 X10*3/uL (0.00-0.03); Imm Gran Pct Auto 0.4 % (0.0-0.4); Lymphocytes Absolute Auto 2.2 X10*3/uL (1.2-4.9); Lymphocytes Percent Auto 37.9 % (20-40); Mean Corpuscular HGB Conc 34.3 g/dl (31.0-35.0); Mean Corpuscular Volume 90.5 fL (80.0-98.0); Mean Platelet Volume 10.9 fL (9.4-12.3); Monocytes Absolute Auto 0.3 X10*3/uL (0.1-1.2); Monocytes Percent Auto 5.3 % (2-11); Neutrophils Absolute Auto 3.1 x10*3/uL (2.0-8.3); Neutrophils Percent Auto 54.9 % (45-73); Platelet Count 199 X10*3/uL (160-400); Red Blood Count 4.32 X10*6/uL (4.20-5.50); Red Cell Distribution Width 12.7 % (11.0-16.0); White Blood Count 5.7 X10*3/uL (4.8-10.8)
[2024-08-31 15:04] LABS: Estimated Average Glucose 206 mg/dL; Hemoglobin A1C 262.1596 umol/L; Hemoglobin A1c % 8.8 % (<6.0); Total Hemoglobin (HGBA1C) 3627.4441 umol/L
[2024-08-31 15:55] LABS: Vitamin B12 769 pg/mL (200-900)
--- OUTSIDE RECORDS SUMMARY | 2024-08-31 16:01 | XMS_ITS | Data Portability ---
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 She has myofascial pain syndrome in her right upper back. Trigger points were palpated with reproduction of her pain in the right trapezius muscle . Trial of trigger point injections in right trapezius muscle under ultrasound guidance were discussed with her. The risks and benefits of the procedure were discussed and she wishes to proceed and an appointment has been made for the same. I will also get X-ray of her cervical spine . [email or web address] Not available 03/23/2019 08:46:15 03/23/2019 03/23/2019 India Nuñez is a 53 year old woman with neck pain radiating into right upper back. She has myofascial pain syndrome in her right upper back. Trigger points were palpated with reproduction of her pain in the right trapezius muscle . She is here for a trial of trigger point injections in right trapezius muscle under ultrasound guidance . The risks and benefits of the procedure were discussed and she wishes to proceed . She will follow up in two weeks. [email or web address] Not available 03/23/2019 15:18:03 04/27/2019 04/27/2019 India Nuñez is a 53 year old woman with neck pain radiating into right upper back. She has myofascial pain syndrome in her right upper back. Trigger points were palpated with reproduction of her pain in the right trapezius muscle . She is here for a trigger point injections in right trapezius muscle under ultrasound guidance . The risks and benefits of the procedure were discussed and she wishes to proceed . I will order a MRI Cervical spine. She will follow up to review the same. darwin Not available 04/27/2019 13:37:30 05/06/2019 05/06/2019 India Nuñez is a 53 year old woman with neck pain radiating into both upper extremities with numbness and weakness. On exam, she has pain on flexion.MRI Cervical Spine shows Slight anterolisthesis at C7-T1 with otherwise normal spinal alignment. Multilevel DDD, spondylosis and multilevel central disc herniations with mild degrees of cord impingement at C4-5 and C5-6, with canal stenosis at these levels. Multilevel bony degenerative changes consistent with DJD, with predominantly mild-to moderate degrees of multilevel neural foraminal stenosis.Small sub centimeter right thyroid lobe nodules are suspected. I recommend a neurosurgical evaluation. I have advised her to discuss the finding of the right lobe thyroid nodule with her PCP, Dr. Smith. darwin Not available 05/06/2019 09:42:11 Plan of Treatment Reminders Order Date Submit Date Provider Last Modified By Organization Details Last Modified Time Details Appointments None recorded. Lab None recorded. Referral neurosurger y referral 2018 019 INGRIS Lozano MD, [address], [facility] [address], [place], [address], 0 09:38:50 Procedures None recorded. Surgeries None recorded. Imaging MRI, cervical spine, w/o contrast 2018 019 EU[facility], [address] , [facility] [address], [place], [address], 9 14:56:39 Medication Orders None recorded. Patient TargetsNo targets recorded. Patient InstructionsNo instructions recorded. Reason for Referral Neurosurgery Referral for Ce rvical radiculopathy Referring Physician: Alexx Ortiz, Pain Management, Encounter Date: 05/06/2019 Results Created Date Observation Date Name Description Value Unit Range Abnormal Flag Note LastModifiedBy Organization Detail LastModifiedTime 04/28/20 19 04/27/2019 MRI, cervi vini spine , w/o contr ast No observ ation record ed. [email or web address] [facility] [address] [facility] [address], [place], [address], 05/06/2019 08:44:08 Result Notes None recorded. Problems Name Problem SNOMED Code Status Onset Date Resolution Date Notes Provider Name and Address Organization Details Recorded Time Cervical radiculopathy 19556842 Active Alexx brock MD [address] , [address], [place], [address], [place] [facility] 10:56:02 Degeneration of cervical intervertebral disc 00531722 Active Alexx brock MD [address] , [address], [place], [place], [address], [place] [facility] 08:25:23 Muscle pain 47420215 Active Alexx brock MD [address] , [address], [place], [place], [address], [place] [facility] 08:25:32 Problem Notes None recorded. Procedures Surgical History Date Name Laterality Status Provider Name and Address Organization Details Recorded Time 04/27/20 19 Trigger Point Injections under ultrasound guidance completed Alexx Ortiz MD [address] , [address], [place], [address], [place] [facility] 04/27/2019 13:30:47 03/23/20 19 Trigger Point Injections under ultrasound guidance completed Alexx Ortiz MD [address] , [address], [place], [address], [place] [facility] 03/23/2019 15:17:04 Hysterectomy completed Alexx Ortiz MD [address] , [address], [place], [address], [place] [facility] 03/09/2019 10:59:35 hemorrhoidectomy completed Alexx Ortiz MD [address] , [address], [place], [address], [place] [facility] 03/09/2019 10:59:59 Imaging Results Imaging Date Name Status [facility]Modified by [facility] Details LastModified Time 04/27/2019 MRI, cervical spine, w/o contrast completed [email or web address] [facility] [address] [facility] [address], [place], [address], 05/06/2019 08:44:08 Procedure Notes None recorded. Medical Equipment None Reported. Allergies Allergen ID Allergen Name Allergen Category Reaction Reaction Severity Criticality Documentation Date Start Date Code Code System Note Provider Name and Address Organization Details Recorded Time 60831 acetamino phen / oxycodone medicatio n nausea Not available Not available 03/09/2019 89083 3 RxNorm Alexx brock MD [address] [employer] [facility] , [address], [place], [address], [facility] 9 10:54:58 Medications Name Sig Start Date Stop Date Status Note LastModified by Organization Details LastModified Time tizanidine 2 mg tablet TAKE 1 TABLET BY MOUTH EVERYDAY AT BEDTIME 03/09 completed Not Available Not Available Not Available tizanidine 4 mg tablet TK 1 T PO HS UTD active Not Available Not Available No t Available famotidine 40 mg tablet TAKE 1 TABLET BY MOUTH EVERY DAY active Not Available Not Available No t Available tramadol 50 mg tablet TAKE 1 TABLET BY MOUTH TWICE A DAY active Not Available Not Available No t Available amitriptyli ne 25 mg tablet TAKE 1 TABLET BY MOUTH AT BEDTIME active Not Available Not Available No t Available gabapentin 300 mg capsule TAKE 1 CAPSULE BY MOUTH EVERY DAY AT BEDTIME DIRECTED active Not Available Not Available No t Available cyclobenzap rine 5 mg tablet TAKE ONE TABLET BY MOUTH EVERY DAY IN THE MORNING active Not Available Not Available No t Available Vitals Date Recorded Body height Body mass index (BMI) Body weight Heart rate Oxygen saturation Oxygen saturation in Arterial blood by Pulse oximetry Pain severity - 0-10 verbal numeric rating [Score] - Reported Systolic blood pressure Diastolic blood pressure Provider Name and Address Organization Details Last Updated DateTime 9 162.56 cm 27.5 kg/m2 89959.7 8 g 64 /min 96 % 96 % 7 158 mm[Hg] 85 mm[Hg] Alexx brock MD [address] , [address], [place], [address], [place] [facility] 9 10:54:02 Date Recorded Body height Body mass index (BMI) Body weight Heart rate Oxygen saturation Oxygen saturation in Arterial blood by Pulse oximetry Pain severity - 0-10 verbal numeric rating [Score] - Reported Systolic blood pressure Diastolic blood pressure Provider Name and Address Organization Details Last Updated DateTime 9 162.56 cm 27.5 kg/m2 88543.7 8 g 64 /min 95 % 95 % 6 166 mm[Hg] 78 mm[Hg] Giulia brock [place] [facility] 9 10:55:35 Date Recorded Body height Heart rate Oxygen saturation Oxygen saturation in Arterial blood by Pulse oximetry Systolic blood pressure Diastolic blood pressure Provider Name and Address Organization Details Last Updated DateTime 9 162.56 cm 75 /min 97 % 97 % 136 mm[Hg] 75 mm[Hg] Alexx brock MD [address] , [address], [place], [address], [place] [facility] 9 13:12:28 Date Recorded Body height Heart rate Oxygen saturation Oxygen saturation in Arterial blood by Pulse oximetry Pain severity - 0-10 verbal numeric rating [Score] - Reported Systolic blood pressure Diastolic blood pressure Provider Name and Address Organization Details Last Updated DateTime 9 162.56 cm 66 /min 97 % 97 % 5 125 mm[Hg] 71 mm[Hg] Giulia brock [place] [facility] 9 08:30:11 Social History Question Answer Notes LastModified by Organizat ion Details LastModified Time Tobacco Smoking Status Former Smoker quit 20 year ago Alexx Ortiz MD [address] , [address], [place], [address], [place] [facility] 03/09/2019 10:57:50 What Is Your Level Of Alcohol Consumption? Occasional Information not available 03/09/2019 Which Illicit Or Recreational Drugs Have You Used? 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 With Others With A Partner Information not available 03/09/2019 GED Yes Information n ot available 03/09/2019 Marital Status Single darwin Informati on not available 03/09/2019 Sex: Unknown Functional Status None recorded. Mental Status None recorded. Family History Relationship Description Onset Age of this Age Resolved Age Notes LastModified by Organization Details LastModified Time Mother Arthritis [email or web address] Not avail able 03/09/2019 10:56:21 Mother Diabetes mellitus [email or web address] Not available 02/18 10:56:49 Mother Hypertensive disorder [email or web address] Not available 02/18 10:57:09 Mother History of depression [email or web address] Not available 10:57:23 Father Arthritis tmateresaantan Not avail able 03/09/2019 10:56:32 Medical History Condition Response Fibromyalgia Y Arthritis Y Hypertension Y Gynecological HistoryNo gynecological history recorded. Obstetrics History GPAL:G 0 P 0 0 0 0 Past Encounters Encounter ID Performer Location Encounter Start Date Encounter Closed Date Diagnosis/Indication Diagnosis SNOMED-CT Code Diagnosis ICD10 Code Diagnosis Note [id number] Alexx Ortiz MD PAIN OFFICE [address] [place] [address] 03/09/2019 10:44:49 03/23/2019 08:47:13 Muscle pain 30450154 M79.18 Degenerati on of cervical intervertebral disc 84783829 M50.30 Cervical radiculopathy 05786622 M54.12 [id number] Alexx Ortiz MD PAIN OFFICE [address] [place] [address] 03/23/2019 10:47:20 03/23/2019 15:19:06 Muscle pain 94997759 M79.18 Degenerati on of cervical intervertebral disc 35330987 M50.30 Cervical radiculopathy 66271395 M54.12 [id number] Alexx Ortiz MD PAIN OFFICE [address] [place] [address] 04/27/2019 13:01:16 04/27/2019 13:38:49 Muscle pain 61290916 M79.18 Degenerati on of cervical intervertebral disc 89188059 M50.30 Cervical radiculopathy 58797155 M54.12 [id number] Alexx Ortiz MD PAIN OFFICE [address] [place] [address] 05/06/2019 08:11:42 05/06/2019 09:42:44 Cervical radiculopathy 05186339 M54.12 Degenerati on of cervical intervertebral disc 27863211 M50.30 Muscle pain 86183614 M79 .18 Health Concerns Section Related Observation LastModified by Organization Detai ls LastModified Time None Recorded Concern Status LastModified by Organization Details LastModified Time None Recorded Advance Directives Directive None Recorded Payers Encounter Date Sequence Insurance Name Policy Number Policy Sanchez Covered Member ID Sanchez Member ID Guarantor Name 03/09/2019 1 [facility] NET PLAN (MEDICAID HMO) [id number] [place] Nuñez [id number] [place] Nuñez 03/23/2019 1 [facility] PL[facility] (MEDICAID HMO) [id number] India Nuñez [id number] [place] Nuñez 04/27/2019 2 [place] [facility] [place] Nuñez [id number] [place] Nuñez 04/27/2019 1 [facility] PLAN (MEDICAID HMO) [id number] India Nuñez [id number] [place] Nuñez 05/06/2019 2 [place] [facility] India Nuñez [id number] [place] Nuñez 05/06/2019 1 [facility] PLAN (MEDICAID HMO) [id number] India Nuñez [id number] India Nuñez Notes Date Note Type Note Provider Name and Address Organization Details Recorded Time 03/09/2019 text/html India Nuñez is a 53 year old Right handed woman with complaints of neck pain radiating into right upper extremity. The pain started spontaneously five years ago and is becoming greater for the past 3 months. She describes the pain as a burning, shooting pain with numbness and tingling in her right hand and occasionally radiates into left upper extremity. Current pain level is 5/10. 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 Nothing relieves the pain. Pain interferes with sleep. She has no history of bladder or bowel incontinence.She is doing a home stretching exercise program with persistent pain.EMG/NCV study done in [place] a few years ago showed right carpal tunnel.She has had no imaging studies. Alexx Ortiz MD [address] [facility] , [address], [place], [address], [facility] 03/23/2019 11:00:44 03/23/2019 text/html She is here for a trial of trigger point injection in right trapezius muscle under ultrasound guidance.X-Ray Cervical Spine shows there is moderate disc space narrowing and spondylosis at C4-5 and C5-6 . Alexx Ortiz MD [address] , [address], [place], [address], [facility] 03/24/2019 10:10:46 04/27/2019 text/html She is here for a repeat trigger point injection in right trapezius muscle under ultrasound guidance. She reports some pain benefit. She continues to have pain and numbness in her right hand.X-Ray Cervical Spine shows there is moderate disc space narrowing and spondylosis at C4-5 and C5-6 . Alexx Ortiz MD [address] [facility] , [address], [place], [address], [facility] 04/30/2019 13:26:28 05/06/2019 text/html She is here for a follow up to review MRI Cervical Spine. MRI Cervical Spine shows Slight anterolisthesis at C7-T1 with otherwise normal spinal alignment. Multilevel DDD, spondylosis and multilevel central disc herniations with mild degrees of cord impingement at C4-5 and C5-6, with canal stenosis at these levels. Multilevel bony degenerative changes consistent with DJD, with predominantly mild-to moderate degrees of multilevel neural foraminal stenosis.Small sub centimeter right thyroid lobe nodules are suspected. She continues to have neck pain radiating into both upper extremities with numbness and weakness. She has no history of bladder or bowel incontinence. Alexx Ortiz MD [address] [facility] , [address], [place], [address], [facility] 05/06/2019 12:11:11 OBGyn Episode No OBEpisode recorded.
--- OUTSIDE RECORDS SUMMARY | 2024-08-31 16:01 | XMS_ITS | Clinical Summary ---
Author Organization [employer] [facility] Address [address] [place] [address] Care Team Providers Care Vegetable Thinner Name Role Phone Sobeida Ames MD Primary Care Provider [phone] Allergies Active Allergy Reactions Criticality Noted Date Comments Dapagliflozin Dermatitis,Rash 12/13/2023 Yeast infection Oxycodone-Acetaminophen Hives,Nausea Only 04/19 Medications carvediloL (COREG) 3.125 mg tablet Take 1 tablet (3.125 mg total) by mouth 1 (one) time each day. 2 Active gabapentin (NEURONTIN) 100 mg capsule Take 1 capsule (100 mg total) by mouth at bedtime. Active meloxicam (MOBIC) 15 mg tablet Take 1 tablet (15 mg total) by mouth 1 (one) time each day if needed. 4 Active famotidine (PEPCID) 40 mg tablet Take 1 tablet (40 mg total) by mouth 1 (one) time each day. 2 Active ferrous sulfate 325 mg (65 mg elemental iron) tablet Take 1 tablet (325 mg total) by mouth 1 (one) time each day. Active losartan-hydroC HLOROthiazide (HYZAAR) 100-25 mg per tablet Take 1 tablet by mouth 1 (one) time each day. 3 Active tiZANidine (ZANAFLEX) 4 mg capsule Take 1 capsule (4 mg total) by mouth 1 (one) time each day. Active pyridoxine (B-6) 100 mg tablet Take 1 tablet (100 mg total) by mouth 1 (one) time each day. Active rosuvastatin (CRESTOR) 10 mg tablet Take 1 tablet (10 mg total) by mouth 1 (one) time each day. 5 Active glipiZIDE (GLUCOTROL) 5 mg tablet 2 tabs with breakfast and 1 tab with dinner 90 each 3 Active Active Problems Problem Noted Date Diagnosed Date Carpal tunnel syndrome 06/18/2023 Diabetes ([facility] V24, [facility] V28) 06/18/2023 Fibromyalgia 06/18/2023 HTN (hypertension) 06/18/2023 Hemorrhoids 06/18/2023 Hyperlipidemia 06/18/2023 Iron deficiency anemia 06/18/2023 OA (osteoarthritis) 06/18/2023 Kidney stone 06/18/2023 Encounters Date Type Department Care Team Description 06/23/2024 4:30 PM EST Office Visit Endocrinology [id number] [place] [phone] Rachelle Fernández PA Other specified diabetes mellitus with other specified complication, with long-term current use of insulin ([facility] V24, [facility] V28) (Primary Dx) from Last 3 Months Surgical History Surgery Date Site/Laterality Comments HYSTERECTOMY PROCEDURE: HISTORICAL HYSTERECTOMY HEMORRHOID SURGERY PROCEDURE: SD INCISION THROMBOSED HEMORRHOID EXTERNAL NECK SURGERY PROCEDURE: HISTORICAL NECK SURGERY Medical History Medical History Date Comments Diabetes ([facility] V24, [facility] V28) 06/18/2023 DX:Diabetes ([facility]) Fibromyalgia 06/18/2023 DX:Fibromyalgia Iron deficiency anemia 06/18/2023 DX:Iron d eficiency anemia Hemorrhoids 06/18/2023 DX:Hemorrhoids Family History Medical History Relation Name Comments Arthritis Mother Depression Mother Diabetes Mother Relation Name Status Comments Daughter 1 Alive Daughter 2 Alive Daughter 3 Alive Father Alive Mother Alive Social History Tobacco Use Types Packs/Day Years Used Date Smoking Tobacco: Never Smokeless Tobacco: Never Tobacco Cessation:Counseling Given: Not Answered Comments Unknown Sex and Gender Information Value Date Recorded Sex Assigned at Not on file Legal Sex Female 10:22 AM EST Gender Identity Not on file Sexual Orientation Not on file Obstetrics History Last Filed Vital Signs Vital Sign Reading Time Taken Comments Blood Pressure 104/64 06/23/2024 4:22 PM EST C Pulse 68 06/23/2024 4:22 PM EST Temperature 36 ??C (96.8 ??F) 06/23/2024 4:2 2 PM EST Respiratory Rate - - Oxygen Saturation 98% 12/13/2023 8:3 9 AM EDT at rest, room air Inhaled Oxygen Concentration - - Weight 75.8 kg (167 lb) 06/23/2024 4:22 PM EST Height 162.6 cm (5' 4 ) 06/23/2024 4:22 PM EST Body Mass Index 28.67 06/23/2024 4:22 PM EST Plan of Treatment Upcoming Encounters Date Type Department Care Team (Late st Contact Info) Description 09/23/2024 9:30 AM EDT Office Visit Endocrinology - [place] [address] [place] [address] Rachelle Fernández PA [address] [place] [address] Health Maintenance Due Date Last Done Comments Breast Cancer Screening 1965 DTaP,Tdap,and Td Vaccines (1 - Tdap) 1985 Hepatitis B Vaccines (1 of 3 - 19+ 3-dose series) 1985 Pneumococcal Vaccine: 50+ Years (1 of 2 - PCV) 1985 Pneumococcal Vaccine: Pediatrics (0 to 5 Years) and At-Risk Patients (6 to 64 Years) (1 of 2 - PCV) 1985 Cervical Cancer Screening: P ap Smear 09/17/1987 Zoster Vaccines (1 of 2) 2016 Colorectal Cancer Screening: Colonoscopy 07/16/2023 Depression Screening 07/16/2023 HIV Screening 07/16/2023 Hepatitis C Screening 07/16/2023 Social Influencers of Health Screening 07/16/2023 COVID-19 Vaccine (1 - 2023-2 5 season) 2024 Diabetes: Annual Urine Albumin-Creatinine Ratio (uACR) 06/24/2024 06/24/2023 Diabetes: Annual GFR (Glomerular Filtration Rate) 06/24/2024 06/24/2023 Hypertension/CHF/CAD Annual BMP Blood Test 06/24/2024 06/24/2023 Diabetes: Blood Sugar Contro l Test (HGBA1C) 10/04/2024 04/06/2024, 12/13/2023, 10/09/2023 Diabetes: Annual Foot Exam 10/08/2024 10/09/2023 Influenza Vaccine (Season Ended) 2025 Diabetes: Annual Retina Eye Exam 03/31/2025 03/31/2024 Cholesterol Screening (Lipid Panel) 06/24/2028 06/24/2023 HIB Vaccines Aged Out No longer eligi ble based on patient's age to complete this topic HPV Vaccines Aged Out No longer eligi ble based on patient's age to complete this topic Hepatitis A Vaccines Aged Out No long er eligible based on patient's age to complete this topic IPV Vaccines Aged Out No longer eligi ble based on patient's age to complete this topic MMR Vaccines Aged Out No longer eligi ble based on patient's age to complete this topic Meningococcal ACWY Vaccine Aged Out N o longer eligible based on patient's age to complete this topic Meningococcal B Vaccine Aged Out No l onger eligible based on patient's age to complete this topic RSV Immunization Patients Under 20 months Aged Out No longer eligible b ased on patient's age to complete this topic Varicella Vaccines Aged Out No longer eligible based on patient's age to complete this topic Procedures Procedure Name Priority Date/Time Associated Diagnosis Comments POC GLUCOSE Routine 06/23/2024 4:49 PM EST Other specified diabetes mellitus with other specified complication, with long-term current use of insulin ([facility] V24, [facility] V28) HEMOGLOBIN A1C Routine 04/06/2024 10:35 AM EST Type 2 diabetes mellitus ([facility] V24, [facility] V28) DIABETES FOOT EXAM Routine 10/09/2023 URINE ALBUMIN CREATININE RATIO Routine 06/24/2023 ANNUAL BMP BLOOD TEST Routine 06/24/2023 LIPID PANEL Routine 06/24/2023 from Last 3 Months or Most Recently Relevant to Health Maintenance Results * POC glucose manually resulted (06/23/2024 4:49 PM EST) Glucose POC 115 mg/dL Comment:non Fasting Blood Capillary blood specimen / Unknown 06/23/2024 4:49 PM EST Result [facility] Rachelle BARCENAS POINT OF CARE TEST ENTER/ED IT ORDERABLES Final Result * (ABNORMAL) Hemoglobin A1c (04/06/2024 10:35 AM EST) [facility] Hemoglobin A1C 6.7(H) <6.5 % LAB CHEMISTRY METHOD 04/07/2024 3:03 PM EST [facility] Mean Bld Glu Estim. 146 mg/dL LAB CHEMISTRY METHOD 04/07/2024 3:03 PM EST [facility] Blood Venous blood specimen / Unknown Venipuncture / Unknown 04/06/2024 10:35 AM EST 04/06/2024 10:35 AM EST Result [facility] Rachelle BARCENAS LAB BLOOD ORDERABLES Final Result [facility] [address] [place] [address], [place] [phone] * Diabetes Foot Exam (10/09/2023) [facility] Diabetes: Annual Foot Exam Abstracted Result [facility] Provider HEALTH MAINTENANCE Final Result * Urine Albumin Creatinine Ratio (06/24/2023) [facility] Urine Albumin Creatinine Ratio Abstracted Result [facility] Provider HEALTH MAINTENANCE Final Result * Annual BMP Blood Test (06/24/2023) [facility] Annual BMP Blood Test Abstracted Result [facility] Provider HEALTH MAINTENANCE Final Result * (ABNORMAL) Lipid panel (06/24/2023) [facility] LDL/HDL Ratio 3 0 - 4 Triglycerides 230(A) 0 - 150 mg/dL Cholesterol 161 0 - 200 mg/dL HDL 51 >=40 mg/dL LDL Cholesterol 64 0 - 100 mg/dL Blood Venous blood specimen / Unknown Result [facility] Historical Provider LAB BLOOD ORDERABLES Cristina l Result from Last 3 Months or Most Recently Relevant to Health Maintenance Insurance [facility] Care Teams Vegetable Thinner Relationship Specialty Start Date End Date Sobeida Ames MD [address] [place] [address] [place] [address] PCP - General 05/23/23
--- OUTSIDE RECORDS SUMMARY | 2024-08-31 16:01 | XMS_ITS | Data Portability ---
Author Organization NARINDER [facility] , [address] Address [address] [place] [address] Assessment No assessment recorded. Plan of Treatment Reminders Order Date Submit Date Provider Last Modified By Organization Details Last Modified Time Details Appointments None record ed. Lab None record ed. Referral None record ed. Procedures None record ed. Surgeries None record ed. Imaging None record ed. Medication Orders None record ed. Patient TargetsNo targets recorded. Patient Instructions Encounter Date Encounter Id Patient Instructions Last Modified By Organization Details Last Modified Time 06/11/2022 [id number] This physical does not replace the annual physical to be performed by your PCP. There may be additional screening tests that they will perform that we do not in the urgent care setting. Failure to follow up as recommended may result in significant adverse health consequences. ??? If your symptoms worsen or you develop new symptoms that concern you, go to the emergency department for further evaluation. [email or web address] Not available 06/11/2022 09:35:48 Reason for Referral None Reported. Procedures Surgical History Date Name Laterality Status Provider Name and Address Organization Details Recorded Time OC-DOT PHYSICAL completed DAPHNE [facility] 06/11/2022 08:53:19 Imaging Results None recorded. Procedure Notes None recorded. Medical Equipment None Reported. Vitals None Recorded Social History None recorded. Functional Status None recorded. Mental Status None recorded. Family History Nothing Reported. Medical History No medical history recorded. Gynecological HistoryNo gynecological history recorded. Obstetrics History GPAL:G 0 P 0 0 0 0 Past Encounters Encounter ID Performer Location Encounter Start Date Encounter Closed Date Diagnosis/Indication Diagnosis SNOMED-CT Code Diagnosis ICD10 Code Diagnosis Note [id number] [address] [address] 08/28/2016 10:14:10 08/28/2016 11:46:35 [id number] [address] [place] [address] 06/19/2021 11:13:42 06/19/2021 13:08:40 [id number] [address] [place] [address] 08/18/2018 15:23:17 08/18/2018 17:07:45 [id number] [address] [place] [address] 06/29/2020 09:10:52 06/29/2020 10:25:51 [id number] [address] [place] [address] 12/11/2019 09:52:34 12/11/2019 10:17:00 [id number] Grabiel Kemp NP [address] [facility] [place] [address] 06/11/2022 08:13:54 06/11/2022 09:48:47 History and physical examination, pre-employment [id number] Z02.1 Documentat ion for this visit can be found on the electronic DOT form or scanned copy Health Concerns Section Related Observation LastModified by Organization Detai ls LastModified Time None Recorded Concern Status LastModified by Organization Details LastModified Time None Recorded Advance Directives Directive None Recorded Payers Encounter Date Sequence Insurance Name Policy Number Policy Sanchez Covered Member ID Sanchez Member ID Guarantor Name 12/11/2019 1 [facility] [employer] - HEALTH NET PLAN (MEDICAID HMO) [id number] [place] Nu[place] [id number] [place] 06/11/2022 DO NOT USE [place] PAY AT TIME OF SERVICE PAY AT TIME OF SERVICE [place] Notes Date Note Type Note Provider Name a nd Address Organization Details Recorded Time 06/11/2022 text/html physical Grabiel Kemp NP [address] [place], [address], [place] - [facility] 06/11/2022 09:36:08 OBGyn Episode No OBEpisode recorded.
[2024-08-31 16:42] LABS: Alanine Aminotransferase 30 U/L (0-31); Albumin Level 4.4 g/dL (3.5-5.0); Alkaline Phosphatase 68 U/L (39-117); Anion Gap 13 (12-20); Aspartate Amino Transferase 20 U/L (5-31); Bilirubin Total 0.5 mg/dL (0.0-1.0); Blood Urea Nitrogen 22 mg/dL (9-16); Calcium 10.2 mg/dL (8.4-10.2); Carbon Dioxide 29 mmol/L (22-29); Chloride 100 mmol/L (96-108); Estimated Glomerular Filt Rate > 60; Glucose Random 148 mg/dL (60-115); Potassium 3.7 mmol/L (3.3-5.1); Sodium 138 mmol/L (135-145); Total Protein 7.8 g/dL (6.5-8.0)
[2024-08-31 16:51] LABS: Ferritin 437 ng/mL (10-250)
== END 2024-08-31 13:48 | disposition home or self-care (01) ==
LOC: HO.LAB 13:47
PROVIDERS: PCP Internal Medicine; Visit Provider Internal Medicine
DX: D50.8 Other iron deficiency anemias (principal); E11.9 Type 2 diabetes mellitus without complications; E78.00 Pure hypercholesterolemia, unspecified; I10 Essential (primary) hypertension; Z68.30 Body mass index [BMI] 30.0-30.9, adult
CPT/HCPCS: 36415; 80053; 82607; 82728; 83036; 85025

== ENCOUNTER 2024-09-28 07:27 | Outpatient (REF) | payer OTHER, SELFPAY ==
--- OUTSIDE RECORDS SUMMARY | 2024-09-28 07:29 | XMS_ITS | Data Portability ---
Author Organization [facility] Address [address] [facility] [address] [place] [address] Care Team Providers Care Dental Equipment Installer And Servicer Name Role Phone KIRK SMITH Primary Care Provider [phone] Assessment Encounter Date Assessment Date Assessment LastModified [...] INGRIS Lozano MD, [address], [facility] [address], [place], [address], 0 09:38:50 Procedures None recorded. Surgeries None recorded. Imaging MRI, cervical spine, w/o contrast 2018 [id number] [place] [facility], [address] , [facility] [address], [place], [address], 9 14:56:39 Medication Orders None recorded. Patient [...] observ ation record ed. [email or web address] [facility] [address] [facility] [address], [place], [address], 05/06/2019 08:44:08 Result Notes None recorded. Problems Name Problem SNOMED Code Status Onset Date Resolution Date Notes Provider Name and Address Organization Details Recorded Time Cervical radiculopathy 81961120 Active Alexx brock MD [address] , [address], [place], [address], [place] [facility] 10:56:02 Degeneration of cervical intervertebral disc 36878263 Active Alexx brock MD [address] , [address], [place], [place], [address], [place] [facility] 08:25:23 Muscle pain 00082059 Active Alexx brock MD [address] , [address], [place], [place], [address], [place] [facility] 08:25:32 Problem Notes None recorded. Procedures Surgical History Date Name Laterality Status Provider Name and Address Organization Details Recorded Time 04/27/20 19 Trigger Point Injections under ultrasound guidance completed Alexx Ortiz MD [address] , [address], [place], [address], [place] [facility] 04/27/2019 13:30:47 03/23/20 19 Trigger Point Injections under ultrasound guidance completed Alexx Ortiz MD [address] , [address], [place], [address], [place] [facility] 03/23/2019 15:17:04 Hysterectomy completed Alexx Ortiz MD [address] , [address], [place], [address], [place] [facility] 03/09/2019 10:59:35 hemorrhoidectomy completed Alexx Ortiz MD [address] , [address], [place], [address], [place] [facility] 03/09/2019 10:59:59 Imaging Results Imaging Date Name Status LastModified by Organiz [facility] Details LastModified Time 04/27/2019 MRI, cervical spine, w/o contrast completed [email or web address] [facility] [address] [facility] [address], [place], [address], 05/06/2019 08:44:08 Procedure Notes None recorded. Medical Equipment None Reported. Allergies Allergen ID Allergen Name Allergen Category Reaction Reaction Severity Criticality Documentation Date Start Date Code Code System Note Provider Name and Address Organization Details Recorded Time 32480 acetamino phen / oxycodone medicatio n nausea Not available Not available 03/09/2019 20589 3 RxNorm Alexx brock MD [address] [facility] , [address], [place], [address], [facility] 9 10:54:58 Medications Name [...] Updated DateTime 9 162.56 cm 27.5 kg/m2 53849.7 8 g 64 /min 96 % 96 % 7 158 mm[Hg] 85 mm[Hg] Alexx brock MD [address] , [address], [place], [address], [place] [facility] 9 10:54:02 Date Recorded Body height Body mass index (BMI) Body weight Heart rate Oxygen saturation Oxygen saturation in Arterial blood by Pulse oximetry Pain severity - 0-10 verbal numeric rating [Score] - Reported Systolic blood pressure Diastolic blood pressure Provider Name and Address Organization Details Last Updated DateTime 9 162.56 cm 27.5 kg/m2 35073.7 8 g 64 /min 95 % 95 [...] mm[Hg] 75 mm[Hg] Alexx brock MD [address] , [address], [place], [address], [place] [facility] 9 13:12:28 Date Recorded Body height Heart rate Oxygen saturation Oxygen saturation in Arterial blood by Pulse oximetry Pain severity - 0-10 verbal numeric rating [Score] - Reported Systolic blood pressure Diastolic blood pressure Provider Name and Address Organization Details Last Updated DateTime 9 162.56 cm 66 /min 97 % 97 % 5 125 mm[Hg] 71 mm[Hg] iGulia brock [place] [facility] 9 08:30:11 Social History Question Answer Notes LastModified by Organizat ion Details LastModified Time Tobacco Smoking Status Former Smoker quit 20 year ago Alexx Ortiz MD [address] , [address], [place], [address], [place] [facility] 03/09/2019 10:57:50 Which Illicit Or Recreational Drugs Have You Used? None Information not available 03/09/2019 Education 9 Information n ot available 03/09/2019 Live Alone Or With Others? With Others With A Partner Information not available 03/09/2019 GED Yes Information n ot available 03/09/2019 Marital Status Single Informati on not available 03/09/2019 Sex: Unknown Functional Status Question Answer Note LastModified by Organizat ion Details LastModified Time What is your level of alcohol consumption? 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 Family History Relationship Description Onset Age of this Age Resolved Age Notes LastModified by Organization Details LastModified Time Mother Arthritis tmanikantan Not avail able 03/09/2019 10:56:21 Mother Diabetes mellitus [email or web address] Not available 02/18 10:56:49 Mother Hypertensive disorder tmanikantan Not available 02/18 10:57:09 Mother History of depression tmanikantan Not available 10:57:23 Father Arthritis tmanikantan Not avail able 03/09/2019 10:56:32 Medical History Condition Response Arthritis Y Fibromyalgia Y Hypertension Y Gynecological HistoryNo gynecological history recorded. Obstetrics History GPAL:G 0 P 0 0 0 0 Past Encounters Encounter ID Performer Location Encounter Start Date Encounter Closed Date Diagnosis/Indication Diagnosis SNOMED-CT Code Diagnosis ICD10 Code Diagnosis Note [id number] Alexx Ortiz MD PAIN OFFICE [address] [place] [address] 03/09/2019 10:44:49 03/23/2019 08:47:13 Muscle pain 05249129 M79.18 Degenerati on of cervical intervertebral disc 30258016 M50.30 Cervical radiculopathy 14792238 M54.12 [id number] Alexx Ortiz MD PAIN OFFICE [address] [place] [address] 03/23/2019 10:47:20 03/23/2019 15:19:06 Muscle pain 38138743 M79.18 Degenerati on of cervical intervertebral disc 59892782 M50.30 Cervical radiculopathy 10144750 M54.12 [id number] Alexx Ortiz MD PAIN OFFICE [address] [place] [address] 04/27/2019 13:01:16 04/27/2019 13:38:49 Muscle pain 95596204 M79.18 Degenerati on of cervical intervertebral disc 53840360 M50.30 Cervical radiculopathy 12510906 M54.12 [id number] Alexx Ortiz MD PAIN OFFICE [address] [place] [address] [place] [address] 05/06/2019 08:11:42 05/06/2019 09:42:44 Cervical radiculopathy 20236863 M54.12 Degenerati on of cervical intervertebral disc 63515615 M50.30 Muscle pain 25719510 M79 .18 Health Concerns Section Related Observation LastModified by Organization Detai ls LastModified Time None Recorded Concern Status LastModified by Organization Details LastModified Time None Recorded Advance Directives Directive None Recorded Payers Encounter Date Sequence Insurance Name Policy Number Policy Sanchez Covered Member ID Sanchez Member ID Guarantor Name 03/09/2019 1 [facility] NET PLAN (MEDICAID HMO) [id number] [place] [id number] [place] Jo[place]quin 03/23/2019 1 [facility] NET PLAN (MEDICAID HMO) [id number] [place] [id number] [place] 04/27/2019 2 [place] [facility] [place] [id number] [place] 04/27/2019 1 [facility] (MEDICAID HMO) [id number] [place] [id number] [place] 05/06/2019 2 [place] [facility] [place] [id number] [place] 05/06/2019 1 [facility] [employer] (MEDICAID HMO) [id number] [place] [id number] [place] Nu[place] Notes Date Note Type Note [...] to the right and 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 Nothing relieves the pain. Pain interferes with sleep. She has no history of bladder or bowel incontinence.She is doing a home stretching exercise program with persistent pain.EMG/NCV study done in [place] a few years ago showed right carpal tunnel.She has had no imaging studies. Alexx Ortiz MD [address] [facility] , [address], [place], [address], [facility] 03/23/2019 11:00:44 03/23/2019 text/html She is here for a trial of trigger point injection in right trapezius muscle under ultrasound guidance.X-Ray Cervical Spine shows there is moderate disc space narrowing and spondylosis at C4-5 and C5-6 . Alexx Ortiz MD [address] [facility] , [address], [place], [address], [facility] 03/24/2019 10:10:46 04/27/2019 text/html She is here for a repeat trigger point injection in right trapezius muscle under ultrasound guidance. She reports some pain benefit. She continues to have pain and numbness in her right hand.X-Ray Cervical Spine shows there is moderate disc space narrowing and spondylosis at C4-5 and C5-6 . [facility]x Ortiz MD [address] [facility] , [address], [place], [address], [facility] 04/30/2019 13:26:28 05/06/2019 text/html She [...] bowel incontinence. Alexx Ortiz MD [address] [facility] , [address], [place], [address], [facility] 05/06/2019 12:11:11 OBGyn Episode No OBEpisode recorded.
--- OUTSIDE RECORDS SUMMARY | 2024-09-28 07:29 | XMS_ITS | Data Portability ---
Author Organization [facility] , [facility] Address [address] [place] [id number] Assessment No assessment recorded. Plan of Treatment [...] By Organization Details Last Modified Time 06/11/2022 [id number] This physical does not replace the annual [...] SNOMED-CT Code Diagnosis ICD10 Code Diagnosis Note [id number] [facility] [address] [address] 08/28/2016 10:14:10 08/28/2016 11:46:35 [id number] 20994_[facility] [address] [address] 06/19/2021 11:13:42 06/19/2021 13:08:40 [id number] 20994_[facility] _[address] [address] 08/18/2018 15:23:17 08/18/2018 17:07:45 [id number] 20[facility] [address] [place] [phone] 06/29/2020 09:10:52 06/29/2020 10:25:51 [id number] 20[facility] [address] [place] [phone] 12/11/2019 09:52:34 12/11/2019 10:17:00 [id number] Grabiel Kmep, CHEMICAL PROCESSOR 20995[facility] [address] [place] [address] 06/11/2022 08:13:54 06/11/2022 09:48:47 History and physical examination, pre-employment [id number] Z02.1 Documentat ion for this visit can be found on the electronic DOT form or scanned copy Health Concerns Section Related Observation LastModified by Organization Detai ls LastModified Time None Recorded Concern Status LastModified by Organization Details LastModified Time None Recorded Advance Directives Directive None Recorded Payers Insurance Date Sequence Insurance Name Policy Number Policy Sanchez Covered Member ID Sanchez Member ID Guarantor Name 06/12/2022 PAY AT TOS [place] I Nuñez PAY AT TIME OF SERVICE PAY AT TIME OF SERVICE [place] I Nuñez 06/11/2022 DO NOT USE [place] I Nuñez PAY AT TIME OF SERVICE PAY AT TIME OF SERVICE [place] I Nuñez 06/11/2022 1 [facility] - HEALTH NET PLAN (MEDICAID HMO) [id number] [place] I Nuñez [id number] [place] I Nuñez Notes Date Note Type Note Provider Name a nd Address Organization Details Recorded Time 06/11/2022 text/html physical Grabiel IZA Kemp [address] [place], [phone], [place] - [facility] 06/11/2022 09:36:08 OBGyn Episode No OBEpisode recorded.
--- OUTSIDE RECORDS SUMMARY | 2024-09-28 07:29 | XMS_ITS | Encounter Summary ---
Author Organization [facility] Address [address] [place] [address] Care Team Providers Care Boiler Repair Supervisor Name Role Phone Sobeida Ames MD Primary Care Provider [phone] Reason for Visit * Reason Comments Diabetes Mellitus Encounter Details Date Type Department Care Team (Late st Contact Info) Description 09/23/2024 9:30 AM EDT Office Visit Endocrinology - [address] [phone] Rachelle Fernández PA [address] [place] [address] Other specified diabetes mellitus with other specified complication, with long-term current use of insulin (CMS/HCC V24, CMS/HCC V28) (Primary Dx); Secondary hypertension; Hyperlipidemia, unspecified hyperlipidemia type Social History Tobacco Use Types Packs/Day Years Used Date Smoking Tobacco: Never Smokeless Tobacco: Never Tobacco Cessation:Counseling Given: Not Answered Comments Unknown Sex and Gender Information Value Date Recorded Sex Assigned at Not on file Legal Sex Female 10:22 AM EST Gender Identity Not on file Sexual Orientation Not on file documented as of this encounter Last Filed Vital Signs Vital Sign Reading Time Taken Comments Blood Pressure 125/71 09/23/2024 9:37 AM EDT A Pulse 71 09/23/2024 9:37 AM EDT Temperature 35.7 ??C (96.3 ??F) 09/23/2024 9:37 AM ED T Respiratory Rate - - Oxygen Saturation 96% 09/23/2024 9:37 AM EDT Inhaled Oxygen Concentration - - Weight 76.2 kg (168 lb) 09/23/2024 9:37 AM EDT Height 162.6 cm (5' 4 ) 09/23/2024 9:37 AM EDT Body Mass Index 28.84 09/23/2024 9:37 AM EDT documented in this encounter Patient Instructions * Attachments The following attachments cannot be sent through Care Everywhere. * Dulaglutide Injection (Cameroonian) documented in this encounter Ordered Prescriptions Prescription Sig Dispense Quantity Refills Last Filled Start Date End Date dulaglutide (TRULICITY) 0.75 mg/0.5 mL pen injector injectionIndication s:Other specified diabetes mellitus with other specified complication, with long-term current use of insulin ([facility] V24, [facility] V28) Inject 0.5 mL (0.75 mg total) under the skin every 7 (seven) days. 2 mL 11 09/23/2024 documented in this encounter Progress Notes * Carla Aponte MA - 09/23/2024 9:30 AM EDT Lab Results Component Value Date GLUCOSE 115 06/23/2024 * NARINDER Sarmiento - 09/23/2024 9:30 AM EDT CHIEF COMPLAINT: Diabetes Mellitus IDENTIFIER: India Nuñez is a 59 y.o. old female. HPI: Patient presents to the office for diabetes follow up. Past medical history of type 2 diabetes, hyperlipidemia, iron deficiency anemia, GERD, arthritis and carpal tunnel syndrome. Type 2 diabetes: Hemoglobin A1c Lab Results Component Value Date HGBA1C 6.7 (H) 04/06/2024 Patient states blood sugars are running high In the office 162 States when she checks at home between 140 and 200. She did not bring her glucometer On glipizide 5 mg 2 tablets a day Farxiga discontinued and yeast infections Side effects in the past to metformin and Januvia At this point she does states she wants to switch to something else. Does not feel glipizide is working anymore. She is now open to doing injectable medications Hypertension: Blood pressure 125/71. On losartan-hydrochlorothiazide, carvedilol Hyperlipidemia: On rosuvastatin 10 mg Wt Readings from Last 3 Encounters: 09/23/24 76.2 kg (168 lb) 06/23/24 75.8 kg (167 lb) 01/08/24 77.3 kg (170 lb 6.4 oz) ROS: GENERAL: No malaise, significant weight loss or fever HEENT: No changes in hearing or vision, nose bleeds or other nasal problems RESPIRATORY: No cough, wheezing or shortness of breath CARDIOVASCULAR: No chest pain, leg swelling or palpitations GI: No abdominal discomfort, blood in stools or black stools ENDOCRINE: See HPI MUSCULOSKELETAL: No joint pain or swelling, back pain, or muscle pain. NEURO: No persistent headache, syncope, seizures, weakness or numbness PAST MEDICAL HISTORY: Patient Active Problem List Diagnosis Date Noted Carpal tunnel syndrome 06/18/2023 Diabetes ([facility] V24, [facility] V28) 06/18/2023 Fibromyalgia 06/18/2023 HTN (hypertension) 06/18/2023 Hemorrhoids 06/18/2023 Hyperlipidemia 06/18/2023 Iron deficiency anemia 06/18/2023 OA (osteoarthritis) 06/18/2023 Kidney stone 06/18/2023 SOCIAL HISTORY: Social History Tobacco Use Smoking status: Never Smokeless tobacco: Never Substance Use Topics Alcohol use: Not on file FAMILY HISTORY: Family Status Relation Name Status Mother Alive Father Alive Daughter Alive Daughter Alive Daughter Alive No partnership data on file Family History Problem Relation Name Age of Onset Diabetes Mother Depression Mother Arthritis Mother ACTIVE MEDICATIONS: Outpatient Medications Marked as Taking for the 09/23/24 encounter (Office Visit) with NARINDER Sarmiento Medication Sig Dispense Refill carvediloL (COREG) 3.125 mg tablet Take 1 tablet (3.125 mg total) by mouth 1 (one) time each day. famotidine (PEPCID) 40 mg tablet Take 1 tablet (40 mg total) by mouth 1 (one) time each day. ferrous sulfate 325 mg (65 mg elemental iron) tablet Take 1 tablet (325 mg total) by mouth 1 (one) time each day. gabapentin (NEURONTIN) 100 mg capsule Take 1 capsule (100 mg total) by mouth at bedtime. losartan-hydroCHLOROthiazide (HYZAAR) 100-25 mg per tablet Take 1 tablet by mouth 1 (one) time eachday. meloxicam (MOBIC) 15 mg tablet Take 1 tablet (15 mg total) by mouth 1 (one) time each day if needed. pyridoxine (B-6) 100 mg tablet Take 1 tablet (100 mg total) by mouth 1 (one) time each day. rosuvastatin (CRESTOR) 10 mg tablet Take 1 tablet (10 mg total) by mouth 1 (one) time each day. tiZANidine (ZANAFLEX) 4 mg capsule Take 1 capsule (4 mg total) by mouth 1 (one) time each day. [DISCONTINUED] glipiZIDE (GLUCOTROL) 5 mg tablet 2 tabs with breakfast and 1 tab with dinner 90 each 3 ALLERGIES: Dapagliflozin and Oxycodone-acetaminophen PHYSICAL EXAM: Blood pressure 125/71, pulse 71, temperature 35.7 ??C (96.3 ??F), temperature source Temporal, height 1.626 m (64 ), weight 76.2 kg (168 lb), SpO2 96%. Body mass index is 28.84 kg/m??. BMI is greaterthan 25.0 (above the normal range) - see Plan APPEARANCE: Alert and in no acute distress HEART: RRR with normal S1 and S2, no murmurs, no gallops, NECK: no thyroid enlargement, nodules or masses felt. LUNG: clear to auscultation NEURO: Awake, alert and oriented x 3 LABS: Lab Results Component Value Date HGBA1C 6.7 (H) 04/06/2024 CHOL 161 06/24/2023 LDL 64 06/24/2023 HDL 51 06/24/2023 TRIG 230 (A) 06/24/2023 Lab Results Component Value Date GLUCOSE 115 06/23/2024 No results found for: TSH IMAGING: IMPRESSION: 1. Other specified diabetes mellitus with other specified complication, with long-term current use of insulin ([facility] V24, [facility] V28) 2. Secondary hypertension 3. Hyperlipidemia, unspecified hyperlipidemia type PLAN: Patient presents to the office for follow-up on diabetes 1. Diabetes: A1c last time at goal, blood sugars now running hide Patient to stop glipizide she is willing to try Trulicity Side effects proper use of medications discussed Importance of lifestyle modifications reviewed Importance of getting eye exam scheduled Follow-up in 3 months. She is due for blood work and she is encouraged to have this done today 2. Hypertension: Blood pressure at goal, continue with current blood pressure lowering medications 3. Hyperlipidemia: Labs ordered last visit. Continue Crestor All questions and concerns were addressed. Patient understands and agrees with this treatment plan.Patient was reminded to call or return to the office if any new or existing problems arise This document was made using voice recognition software. It may contain some errors in grammar or syntax Medication and lab orders: Other specified diabetes mellitus with other specified complication, with long- term current use of insulin ([facility] V24, [facility] V28) (Primary) - dulaglutide (TRULICITY) 0.75 mg/0.5 mL pen injector injection; Inject 0.5 mL (0.75 mg total) under the skin every 7 (seven) days. Dispense: 2 mL; Refill: 11 Secondary hypertension Hyperlipidemia, unspecified hyperlipidemia type NARINDER Sarmiento on 09/23/2024 at 9:54 AM EDT documented in this encounter Plan of Treatment Upcoming Encounters Date Type Department Care Team (Late st Contact Info) Description 12/22/2024 7:45 AM EDT Office Visit Endocrinology [address] [phone] Rachelle Fernández PA [address] [place] [phone] documented as of this encounter Visit Diagnoses Diagnosis Other specified diabetes mellitus with other specified complication, with long- term current use of insulin ([facility] V24, [facility] V28)- Primary Secondary hypertension Other secondary hypertension, unspecified Hyperlipidemia, unspecified hyperlipidemia type documented in this encounter Discontinued Medications Medication Sig Discontinue Reason Start Date End Da te glipiZIDE (GLUCOTROL) 5 mg tablet 2 tabs with breakfast and 1 tab with dinner Formulary change 06/23/2024 09/23/2024 documented as of this encounter Care Teams Boiler Repair Supervisor Relationship Specialty Start Date End Date Sobeida Ames MD [address] [place] [address] [place] [address] PCP - General 05/23/23 documented as of this encounter
--- OUTSIDE RECORDS SUMMARY | 2024-09-28 07:29 | XMS_ITS | Continuity of Care Document ---
Author Organization [facility] delfina Address [address] [place] [address] [address] [place] [address]- Care Team Providers Care Tool Repairer Name Role Phone Hui ADAMSON, Sobeida Olmos Primary Care Physician [id number] Date(s): 08/27/24 - 09/26/24 [facility] [address] [address] Encounter Type: Triage Allergies, Adverse Reactions, Alerts Substance Criticality Severity Reaction Reaction Severity Status Percocet hives Active Medications Carvedilol 3.125 mg, By Mouth, Refills 0, Maintenance, 08/28/22 11:27:00 AM EDT, Partial fill upon patient request if the prescription is for a schedule II opioid drug. Start Date: 08/28/22 Status: Ordered Repeat number: 1 Compression Stockings surgical, knee high length 20-30 mm Hg, # 2 each, Refills 3, Tot. Refills 3, Maintenance, DX: Varicose veins pain and swelling both legs Apply in the morning remove at bedtime, 09/14/24 8:38:00 AM EDT, Supply Start Date: 09/14/24 Status: Ordered Quantity: 2.0 Unit: each Repeat number: 4 Compression Stockings surgical, thigh high length 20-30 mm Hg, # 2 each, Refills 3, Tot. Refills 3, Maintenance, DX: Bilateral lower extremity varicose veins with pain and swelling Apply in the morning remove at bedtime, 09/14/24 8:39:00 AM EDT, Supply Start Date: 09/14/24 Status: Ordered Quantity: 2.0 Unit: each Repeat number: 4 diazepam 5 mg oral tablet 5 mg, 1, tablet, By Mouth, 3 times a day, # 40 tablet, Refills 0, Tot. Refills 0, Maintenance, 10/10/22 12:09:00 PM EDT, Route to Pharmacy Electronically, [facility]/pharmacy #[id number], Partial fill upon patientrequest if the prescription is for a schedule II opioid drug., 163, cm, 10/10/22 7:20:00 EDT, Height, 73, kg, 10/05/22 17:28:00 EDT, Dry Weight Start Date: 10/10/22 Status: Ordered Quantity: 40.0 Unit: tablet Repeat number: 1 docusate sodium 100 mg oral capsule 1 capsule, By Mouth, 2 times a day, PRN NEEDED FOR CONSTIPATION, # 60 capsule, 0 Refills, Maintenance, 02/11/23 9:04:00 AM EDT, [facility] STORE [id number], 163, cm, 11/13/22 9:32:00 EDT, Height, 73, kg, 10/05/22 17:28:00 EDT, Dry Weight Start Date: 02/11/23 Status: Ordered Quantity: 60.0 Unit: capsule Repeat number: 1 hydrochlorothiazide-losartan 25 mg-100 mg oral tablet TAKE 1 TABLET BY MOUTH EVERY DAY Start Date: 09/20/22 Status: Ordered Repeat number: 1 lidocaine 4% topical cream See Instructions, PRN Pain , Moderate, Apply Topically to Affected Area as needed not to exceed 3 applications in 24 hours, # 30 Gm, 0 Refills, Soft Stop, 09/22/22 9:29:00 AM EDT, Cream, [facility], Partial fill upon patient request if the prescription is for a schedule II opioid drug.,Apply Topically to Affected Area as needed; not to exceed 3 applications in 24 hours,PRN:Pain , Moderate, 163, cm, 09/22/22 5:08:00 EDT, Height, 75.3, kg, 09/20/22 13:58:00 EDT, Dry Weight Start Date: 09/22/22 Status: Ordered Quantity: 30.0 Unit: g Repeat number: 1 meloxicam 15 mg oral tablet TAKE 1 TABLET BY MOUTH EVERY DAY NEEDED Start Date: 10/05/22 Status: Ordered Repeat number: 1 Metformin = 1,000 mg, By Mouth, 2 times a day, 0 Refills, Maintenance, 08/28/22 11:28:00 AM EDT, Partial fill upon patient request if the prescription is for a schedule II opioid drug. Start Date: 08/28/22 Status: Ordered Repeat number: 1 Nexium 20 mg oral enteric coated capsule 1 capsule = 20 mg, By Mouth, Daily, # 90 capsule, 0 Refills, Maintenance, 10/05/22 5:19:00 PM EDT, EC Capsule, Partial fill upon patient request if the prescription is for a schedule II opioid drug. Start Date: 10/05/22 Status: Ordered Quantity: 90.0 Unit: capsule Repeat number: 1 oxyCODONE 5 mg oral tablet 5 mg, 1, tablet, By Mouth, Every 6 hours, # 28 tablet, Refills 0, Tot. Refills 0, Maintenance, 10/10/22 12:09:00 PM EDT, Route to Pharmacy Electronically, [facility]/pharmacy #[id number], Partial fill upon patientrequest if the prescription is for a schedule II opioid drug., 163, cm, 10/10/22 7:20:00 EDT, Height, 73, kg, 10/05/22 17:28:00 EDT, Dry Weight Start Date: 10/10/22 Status: Ordered Quantity: 28.0 Unit: tablet Repeat number: 1 tiZANidine 4 mg oral tablet TAKE 1 TABLET BY MOUTH EVERYDAY AT BEDTIME Start Date: 09/20/22 Status: Ordered Repeat number: 1 Problem List Condition Confirmation Course Effective Dates Status Health St atus Informant Hemorrhoids Confirmed Active Hypertension Confirmed Active Non-insulin dependent type 2 diabetes mellitus Confirmed Active Social History Social History Type Response Smoking Status Never (less than 100 in lifetime) entered on: 11/13/22 Sex Sex Representation Female (finding) Patient Care team information Care Team Personnel Name: Sobeida Ames MD Position: [facility] Outreach Member Role: PCP Address: [address] [place] [address] [address] [place] [address]- Telecom: Name: Giovanna Parish RN Position: [facility] RN Member Role: Primary Care Nurse Name: Patricia Gamble LPN Position: [facility] RN Member Role: Primary Care Nurse Name: Elodia Mccain Position: [facility] AMB Nurse Member Role: Lifetime Consulting Physician Care Team Related Persons Name: TULIO LEMUS Name: EHSAN HORTA Name: KATHY IRIZARRY Insurance Providers Guarantor name: SANDIE Health Plan Information #: 1 Payer: [employer] Member Number: NA Policy Number: NA Group Number: NA
--- OUTSIDE RECORDS SUMMARY | 2024-09-28 07:29 | XMS_ITS | Clinical Summary ---
Author Organization [facility] Address [address] [place] [address] Care Team Providers Care Assistant Auto Center Manager Name Role Phone Sobeida Ames MD Primary Care Provider [phone] Allergies Active Allergy Reactions Criticality Noted Date Comments Dapagliflozin Dermatitis,Rash 12/13/2023 Yeast infection/ Jardiance Oxycodone-Acetaminophen Hives,Nausea Only 04/19 Medications carvediloL (COREG) [...] 1 (one) time each day. 5 Active dulaglutide (TRULICITY) 0.75 mg/0.5 mL pen injector injectionIndica tions:Other specified diabetes mellitus with other specified complication, with long-term current use of insulin ([facility] V24, [facility] V28) Inject 0.5 mL (0.75 mg total) under the skin every 7 (seven) days. 2 mL 11 5 Active glipiZIDE (GLUCOTROL) 5 mg tablet 2 tabs with breakfast and 1 tab with dinner 90 each 3 5 09/24/19 25 Discontinu ed(Formula ry change) Active Problems Problem Noted Date Diagnosed Date Carpal tunnel syndrome 06/18/2023 Diabetes ([facility] V24, [facility] V28) 06/18/2023 Fibromyalgia 06/18/2023 HTN (hypertension) 06/18/2023 Hemorrhoids 06/18/2023 Hyperlipidemia 06/18/2023 Iron deficiency anemia 06/18/2023 OA (osteoarthritis) 06/18/2023 Kidney stone 06/18/2023 Encounters Date Type Department Care Team Description 09/23/2024 9:30 AM EDT Office Visit Endocrinology [address] [address] Rachelle Fernández PA Other specified diabetes mellitus with other specified complication, with long-term current use of insulin ([facility] V24, [facility] V28) (Primary Dx); Secondary hypertension; Hyperlipidemia, unspecified hyperlipidemia type from Last 3 Months Surgical History Surgery Date Site/Laterality Comments HYSTERECTOMY PROCEDURE: HISTORICAL HYSTERECTOMY HEMORRHOID SURGERY PROCEDURE: SD INCISION THROMBOSED HEMORRHOID EXTERNAL NECK SURGERY PROCEDURE: HISTORICAL NECK SURGERY Medical History Medical History Date Comments Diabetes ([facility] V24, [facility] V28) 06/18/2023 DX:Diabetes ([facility]) Fibromyalgia 06/18/2023 DX:Fibromyalgia Iron deficiency anemia 06/18/2023 [...] Mass Index 28.84 09/23/2024 9:37 AM EDT Plan of Treatment Upcoming Encounters Date Type Department Care Team (Late st Contact Info) Description 12/22/2024 7:45 AM EDT Office Visit Endocrinology - [place] [address] [place] [address] Rachelle Fernández PA [address] [place] [address] Health Maintenance Due Date Last Done Comments Breast Cancer Screening 1965 DTaP,Tdap,and Td Vaccines (1 - Tdap) 1985 Hepatitis B Vaccines (1 of 3 - 19+ 3-dose series) 1985 Pneumococcal Vaccine: 50+ Years (1 of 2 - PCV) 1985 Pneumococcal Vaccine: Pediatrics (0 to 5 Years) and At-Risk Patients (6 to 64 Years) (1 of 2 - PCV) 1985 Cervical Cancer Screening: Pap Smear 09/17/1987 Zoster Vaccines (1 of 2) 2016 Colorectal Cancer Screening: Colonoscopy 07/16/2023 Depression Screening 07/16/2023 HIV Screening 07/16/2023 Hepatitis C Screening 07/16/2023 Social Influencers of Health Screening 07/16/2023 COVID-19 Vaccine ( season) 2024 Diabetes: Annual Foot Exam 10/08/2024 10/09/2023 Influenza Vaccine (Season Ended) 2025 Diabetes: Blood Sugar Control Test (HGBA1C) 03/26/2025 09/23/2024, 04/06/2024, 12/13/2023, Additional history exists Diabetes: Annual Retina Eye Exam 03/31/2025 03/31/2024 Diabetes: Annual Urine Albumin-Creatinine Ratio (uACR) 09/23/2025 09/23/2024, 06/24/2023 Diabetes: Annual GFR (Glomerular Filtration Rate) 09/23/2025 09/23/2024, 06/24/2023 Hypertension/CHF/CAD Annual BMP Blood Test 09/23/2025 09/23/2024, 06/24/2023 Cholesterol Screening (Lipid Panel) 09/23/2029 09/23/2024, 06/24/2023 HIB Vaccines Aged Out No longer [...] 20 months Aged Out No longer eligible based on patient's age to complete this topic Varicella Vaccines Aged Out No longer eligible based on patient's age to complete this topic Procedures Procedure Name Priority Date/Time Associated Diagnosis Comments HEMOGLOBIN A1C Routine 09/23/2024 10:12 AM EDT Other specified diabetes mellitus with other specified complication, with long-term current use of insulin ([facility] V24, [facility] V28) BASIC METABOLIC PANEL Routine 09/23/2024 10:12 AM EDT Other specified diabetes mellitus with other specified complication, with long-term current use of insulin ([facility] V24, [facility] V28) LIPID PANEL WITH REFLEX TO DIRECT LDL Routine 09/23/2024 10:12 AM EDT Other specified diabetes mellitus with other specified complication, with long-term current use of insulin ([facility] V24, [facility] V28) MICROALBUMIN CREATININE URINE RATIO Routine 09/23/2024 10:12 AM EDT Other specified diabetes mellitus with other specified complication, with long-term current use of insulin ([facility] V24, [facility] V28) DIABETES FOOT EXAM Routine 10/09/2023 from Last 3 Months or Most Recently Relevant to Health Maintenance Results * (ABNORMAL) Lipid panel with reflex to direct LDL (09/23/2024 10:12 AM EDT) Cholesterol 134 0 - 200 mg/dL LAB CHEMISTRY METHOD 09/23/2024 1:13 PM [facility] Triglycerides 298(H) 0 - 150 mg/dL LAB CHEMISTRY METHOD 09/23/2024 1:13 PM [facility] HDL 54 >=40 mg/dL LAB CHEMISTRY METHOD 09/23/2024 1:13 PM [facility] LDL Calculated 20 0 - 100 mg/dL LAB CHEMISTRY METHOD 09/23/2024 1:13 PM [facility] VLDL Cholesterol Tha 59.6 mg/dL LAB CHEMISTRY METHOD 09/23/2024 1:13 PM [facility] Non HDL Chol. (LDL+VLDL) 80 <145 mg/dL LAB CHEMISTRY METHOD 09/23/2024 1:13 PM [facility] Chol/HDL Ratio 2.5 0.0 - 4.4 LAB CHEMISTRY METHOD 09/23/2024 1:13 PM [facility] Blood Venous blood specimen / Unknown Venipuncture / Unknown 09/23/2024 10:12 AM EDT 09/23/2024 10:12 AM EDT us Rachelle BARCENAS LAB BLOOD ORDERABLES Final Result Performing Organization Address [facility] Co de Phone Number [facility] [address] [place] [address], [place] [phone] * Microalbumin creatinine urine ratio (09/23/2024 10:12 AM EDT) Creatinine, Urine 56.0 mg/dL LAB CHEMISTRY METHOD 09/23/2024 7:32 PM EDT [facility] Microalb, Ur <5.0 0.0 - 29.0 mg/L LAB CHEMISTRY METHOD 09/23/2024 7:32 PM EDT [facility] Microalb/Creat Ratio <9 <30 mg/g creat LAB CHEMISTRY METHOD 09/23/2024 7:32 PM EDT [facility] Urine Urine specimen from urethra / Unknown Non-blood Collection / Unknown 09/23/2024 10:12 AM EDT 09/23/2024 10:12 AM EDT us Rachelle BARCENAS LAB URINE ORDERABLES Final Result Performing Organization Address [facility] de Phone Number [facility] [address] [place] [address], [place] [phone] * (ABNORMAL) Hemoglobin A1c (09/23/2024 10:12 AM EDT) Hemoglobin A1C 9.0(H) <6.5 % LAB CHEMISTRY METHOD 09/23/2024 2:36 PM EDT [facility] Mean Bld Glu Estim. 212 mg/dL LAB CHEMISTRY METHOD 09/23/2024 2:36 PM EDT [facility] Blood Venous blood specimen / Unknown Venipuncture / Unknown 09/23/2024 10:12 AM EDT 09/23/2024 10:12 AM EDT us Rachelle BARCENAS LAB BLOOD ORDERABLES Final Result Performing Organization Address [facility]/ZIP Co de Phone Number [facility] [address] [place] [address], [place] [phone] * (ABNORMAL) Basic metabolic panel (09/23/2024 10:12 AM EDT) Sodium 137 133 - 145 mmol/L LAB CHEMISTRY METHOD 09/23/2024 1:13 PM [facility] Potassium 4.0 3.5 - 5.5 mmol/L LAB CHEMISTRY METHOD 09/23/2024 1:13 PM [facility] Chloride 101 96 - 110 mmol/L LAB CHEMISTRY METHOD 09/23/2024 1:13 PM [facility] CO2 31 21 - 32 mmol/L LAB CHEMISTRY METHOD 09/23/2024 1:13 PM [facility] Anion Gap 5 3 - 11 LAB CHEMISTRY METHOD 09/23/2024 1:13 PM [facility] Glucose 130(H) 70 - 100 mg/dL LAB CHEMISTRY METHOD 09/23/2024 1:13 PM [facility] BUN 17 5 - 25 mg/dL LAB CHEMISTRY METHOD 09/23/2024 1:13 PM [facility] Creatinine 0.70 0.50 - 1.10 mg/dL LAB CHEMISTRY METHOD 09/23/2024 1:13 PM [facility] eGFR 100 >=60 mL/min/1. 73m2 LAB CHEMISTRY METHOD 09/23/2024 1:13 PM [facility] Comment:Calculation based on the Chronic Kidney Disease Epidemiology Collaboration (CKD-EPI) equation refit without adjustment for race. BUN/Creatinine Ratio 24.3 LAB CHEMISTRY METHOD 09/23/2024 1:13 PM [facility] Calcium 10.1 8.5 - 10.5 mg/dL LAB CHEMISTRY METHOD 09/23/2024 1:13 PM [facility] Blood Venous blood specimen / Unknown Venipuncture / Unknown 09/23/2024 10:12 AM EDT 09/23/2024 10:12 AM EDT us Rachelle BARCENAS LAB BLOOD ORDERABLES Final Result [facility] ([facility]) [facility] [address] [place] [address], [place] [phone] * Diabetes Foot Exam (10/09/2023) Pathologist [facility] Diabetes: Annual Foot Exam Abstracted us Historical Provider HEALTH MAINTENANCE Final Result from Last 3 Months or Most Recently Relevant to Health Maintenance Insurance [facility] Care Teams Assistant Auto Center Manager Relationship Specialty Start Date End Date Sobeida Ames MD [address] [place] [address] [place] [address] PCP - General 05/23/23
== END 2024-09-28 07:28 | disposition home or self-care (01) ==
LOC: HO.MAMMO 07:27
PROVIDERS: PCP Internal Medicine; Visit Provider Internal Medicine
DX: Z12.31 Encounter for screening mammogram for malignant neoplasm of breast (principal)
CPT/HCPCS: 77063; 77067

== ENCOUNTER → 2024-09-28 07:45 | Outpatient (BNV) | payer OTHER, SELFPAY | PROVIDERS: PCP Internal Medicine; Visit Provider Internal Medicine | DX: Z12.31 Encounter for screening mammogram for malignant neoplasm of breast (principal) | CPT/HCPCS: 77063; 77067 ==

== ENCOUNTER 2025-01-13 07:42 | Outpatient (REF) | payer OTHER, SELFPAY ==
--- OUTSIDE RECORDS SUMMARY | 2025-01-13 07:44 | XMS_ITS | Clinical Summary ---
Author Organization [facility] Address [address] [place] [address] Care Team Providers Care Landing Man Name Role Phone Sobeida Ames MD Primary Care Provider [phone] Allergies Active Allergy Reactions Criticality Noted Date [...] 1 (one) time each day. 5 Active freestyle 28 gauge lancets Check blood sugar once a day or as directed 100 each 3 5 12/23/19 26 Active glimepiride (AMARYL) 4 mg tablet Take 1 tablet (4 mg total) by mouth 1 (one) time each day before breakfast. Being by pcp 5 Active dulaglutide (TRULICITY) 0.75 mg/0.5 mL pen injector injectionIndica tions:Other specified diabetes mellitus with other specified complication, with long-term current use of insulin ([facility] V24, [facility] V28) Inject 0.5 mL (0.75 mg total) under the skin every 7 (seven) days. 2 mL 11 5 12/23/19 25 Discontinu ed(Side effects) Active Problems Problem Noted Date Diagnosed Date Carpal tunnel syndrome 06/18/2023 Diabetes ([facility] V24, [facility] V28) 06/18/2023 Fibromyalgia 06/18/2023 HTN (hypertension) 06/18/2023 Hemorrhoids 06/18/2023 Hyperlipidemia 06/18/2023 Iron deficiency anemia 06/18/2023 OA (osteoarthritis) 06/18/2023 Kidney stone 06/18/2023 Encounters Date Type Department Care Team Description 12/22/2024 7:45 AM EDT Office Visit Endocrinology - [address] [phone] Rachelle Fernández PA Other specified diabetes mellitus with other specified complication, with long-term current use of insulin ([facility] V24, [facility] V28) (Primary Dx); Secondary hypertension; Hyperlipidemia, unspecified hyperlipidemia type 10/15/2024 Telephone Endocrinology [place] [address] [place], [place] [phone] Rachelle Fernández PA from Last 3 Months Surgical History Surgery Date Site/Laterality Comments HYSTERECTOMY PROCEDURE: HISTORICAL HYSTERECTOMY HEMORRHOID SURGERY PROCEDURE: [place] INCISION THROMBOSED HEMORRHOID EXTERNAL NECK SURGERY PROCEDURE: HISTORICAL NECK SURGERY Medical History Medical History Date Comments Diabetes ([facility] V24, [facility] V28) 06/18/2023 DX:Diabetes (HCC) Fibromyalgia 06/18/2023 DX:Fibromyalgia Iron deficiency anemia 06/18/2023 [...] Sign Reading Time Taken Comments Blood Pressure 122/62 12/22/2024 7:43 AM EDT C Pulse 62 12/22/2024 7:43 AM EDT Temperature 35.8 C (96.4 F) 12/22/2024 7:43 AM EDT Respiratory Rate - - Oxygen Saturation 96% 09/23/2024 9:37 AM EDT Inhaled Oxygen Concentration - - Weight 73.8 kg (162 lb 12.8 oz) 12/22/2024 7:43 AM EDT Height 152.4 cm (5') 12/22/2024 7:43 AM EDT Body Mass Index 31.79 12/22/2024 7:43 AM EDT Plan of Treatment Upcoming Encounters Date Type Department Care Team (Late st Contact Info) Description 03/25/2025 8:30 AM EST Office Visit Endocrinology - [address] [phone] Rachelle Fernández PA [address] [place] [address] Health Maintenance Due Date Last Done Comments Breast Cancer Screening 1965 DTaP,Tdap,and Td Vaccines (1 - Tdap) 1985 Hepatitis B Vaccines (1 of 3 - 19+ 3-dose series) 1985 Pneumococcal Vaccine: 50+ Years (1 of 2 - PCV) 1985 Cervical Cancer Screening: Pap Smear 09/17/1987 Zoster Vaccines (1 of 2) 2016 Colorectal Cancer Screening: Colonoscopy 07/16/2023 HIV Screening 07/16/2023 Hepatitis C Screening 07/16/2023 Social Influencers of Health Screening 07/16/2023 COVID-19 Vaccine ( season) 2024 Depression Screening 05/20/2024 Diabetes: Annual Foot Exam 10/08/2024 10/09/2023 Influenza Vaccine (#1) 2025 Diabetes: Annual Retina Eye Exam 03/31/2025 03/31/2024 Diabetes: Blood Sugar Control Test (HGBA1C) 06/24/2025 12/22/2024, 09/23/2024, 04/06/2024, Additional history exists Diabetes: Annual Urine Albumin-Creatinine Ratio (uACR) 09/23/2025 [...] Date/Time Associated Diagnosis Comments HEMOGLOBIN A1C Routine 12/22/2024 8:15 AM EDT Other specified diabetes mellitus with other specified complication, with long-term current use of insulin ([facility] V24, [facility] V28) POC GLUCOSE Routine 12/22/2024 7:39 AM EDT Other specified diabetes mellitus with other specified complication, with long-term current use of insulin ([facility] V24, [facility] V28) MICROALBUMIN CREATININE URINE RATIO Routine 09/23/2024 10:12 AM EDT Other specified diabetes mellitus with other specified complication, with long-term current use of insulin ([facility] V24, [facility] V28) BASIC METABOLIC PANEL Routine 09/23/2024 10:12 AM EDT Other specified diabetes mellitus with other specified complication, with long-term current use of insulin ([facility] V24, [facility] V28) LIPID PANEL WITH REFLEX TO DIRECT LDL Routine 09/23/2024 10:12 AM EDT Other specified diabetes mellitus with other specified complication, with long-term current use of insulin ([facility] V24, [facility] V28) DIABETES FOOT EXAM Routine 10/09/2023 from Last 3 Months or Most Recently Relevant to Health Maintenance Results * (ABNORMAL) Hemoglobin A1c (12/22/2024 8:15 AM EDT) Hemoglobin A1C 6.7(H) <6.5 % LAB CHEMISTRY METHOD 12/22/2024 11:24 AM EDT [facility] Mean Bld Glu Estim. 146 mg/dL LAB CHEMISTRY METHOD 12/22/2024 11:24 AM EDT [facility] Blood Venous blood specimen / Unknown Venipuncture / Unknown 12/22/2024 8:15 AM EDT 12/22/2024 8:15 AM EDT us Rachelle BARCENAS LAB BLOOD ORDERABLES Final Result [facility]) [facility] [address] [place] [address], [place] [phone] * POC glucose manually resulted (12/22/2024 7:39 AM EDT) Glucose POC 109 mg/dL Comment:Fasting Blood Capillary blood specimen / Unknown 12/22/2024 7:39 AM EDT us Rahcelle BARCENAS POINT OF CARE TEST ENTER/ED IT ORDERABLES Final Result * (ABNORMAL) Lipid panel with reflex to direct LDL (09/23/2024 10:12 AM EDT) Cholesterol 134 0 - 200 mg/dL LAB CHEMISTRY METHOD 09/23/2024 1:13 PM EDT [facility] Triglycerides 298(H) 0 - 150 mg/dL LAB CHEMISTRY METHOD 09/23/2024 1:13 PM EDT [facility] HDL 54 >=40 mg/dL LAB CHEMISTRY METHOD 09/23/2024 1:13 PM EDT [facility] LDL Calculated 20 0 - 100 mg/dL LAB CHEMISTRY METHOD 09/23/2024 1:13 PM EDT [facility] VLDL Cholesterol Tha 59.6 mg/dL LAB CHEMISTRY METHOD 09/23/2024 1:13 PM EDT [facility] Non HDL Chol. (LDL+VLDL) 80 <145 mg/dL LAB CHEMISTRY METHOD 09/23/2024 1:13 PM EDT [facility] Chol/HDL Ratio 2.5 0.0 - 4.4 LAB CHEMISTRY METHOD 09/23/2024 1:13 PM EDT [facility] Blood Venous blood specimen / Unknown Venipuncture / Unknown 09/23/2024 10:12 AM EDT 09/23/2024 10:12 AM EDT us Rachelle BARCENAS LAB BLOOD ORDERABLES Final Result [facility] [address] [place] [address], [place] [phone] * Microalbumin creatinine urine ratio (09/23/2024 10:12 AM EDT) Creatinine, Urine 56.0 mg/dL LAB CHEMISTRY METHOD 09/23/2024 7:32 PM [facility] Microalb, Ur <5.0 0.0 - 29.0 mg/L LAB CHEMISTRY METHOD 09/23/2024 7:[facility] Micro[facility]b/Creat Ratio <9 <30 mg/g creat LAB CHEMISTRY METHOD 09/23/2024 7:32 PM EDT [facility] Urine Urine specimen from urethra / Unknown Non-blood Collection / Unknown 09/23/2024 10:12 AM EDT 09/23/2024 10:12 AM EDT Rachelle BARCENAS LAB URINE ORDERABLES Final Result [facility] [address] [place] [address], * (ABNORMAL) Basic metabolic panel (09/23/2024 10:12 AM EDT) [facility] Sodium 137 133 - 145 mmol/L LAB CHEMISTRY METHOD 09/23/2024 1:13 PM [facility] Potassium 4.0 3.5 - 5.5 mmol/L LAB CHEMISTRY METHOD 09/23/2024 1:13 PM [facility] Chloride 101 96 - 110 mmol/L LAB CHEMISTRY METHOD 09/23/2024 1:13 PM [facility] CO2 31 21 - 32 mmol/L LAB CHEMISTRY METHOD 09/23/2024 1:13 PM [facility] Anion Gap 5 3 - 11 LAB CHEMISTRY METHOD 09/23/2024 1:13 PM [facility] Glucose 130(H) 70 - 100 mg/dL LAB CHEMISTRY METHOD 09/23/2024 1:13 PM [facility] BUN 17 5 - 25 mg/dL LAB CHEMISTRY METHOD 09/23/2024 1:13 PM EDT [facility] Creatinine 0.70 0.50 - 1.10 mg/dL LAB CHEMISTRY METHOD 09/23/2024 1:13 PM EDT [facility] eGFR 100 >=60 mL/min/1. 73m2 LAB CHEMISTRY METHOD 09/23/2024 1:13 PM EDT [facility] Comment:Calculation based on the Chronic Kidney Disease Epidemiology Collaboration (CKD-EPI) equation refit without adjustment for race. BUN/Creatinine Ratio 24.3 LAB CHEMISTRY METHOD 09/23/2024 1:13 PM EDT [facility] Calcium 10.1 8.5 - 10.5 mg/dL LAB CHEMISTRY METHOD 09/23/2024 1:13 PM EDT [facility] Blood Venous blood specimen / Unknown Venipuncture / Unknown 09/23/2024 10:12 AM EDT 09/23/2024 10:12 AM EDT us Rachelle BARCENAS LAB BLOOD ORDERABLES Final Result [facility] [address] [place] [address], * Diabetes Foot Exam (10/09/2023) [facility] Diabetes: Annual Foot Exam Abstracted Historical Provider HEALTH MAINTENANCE Final Result from Last 3 Months or Most Recently Relevant to Health Maintenance Insurance [facility] Care Teams Landing Man Relationship Specialty Start Date End Date Sobeida Ames MD [address] [place] [address] [place] [address] PCP - General 05/23/23
[2025-01-13 08:49] LABS: Hemoglobin A1C 163.8614 umol/L; Total Hemoglobin (HGBA1C) 3469.9618 umol/L
[2025-01-13 09:25] LABS: Alanine Aminotransferase 15 U/L (0-31); Albumin Level 4.3 g/dL (3.5-5.0); Alkaline Phosphatase 47 U/L (39-117); Anion Gap 10 (12-20); Aspartate Amino Transferase 15 U/L (5-31); Blood Urea Nitrogen 20 mg/dL (9-16); Calcium 9.2 mg/dL (8.4-10.2); Carbon Dioxide 28 mmol/L (22-29); Chloride 105 mmol/L (96-108); Estimated Glomerular Filt Rate > 60; Potassium 3.9 mmol/L (3.3-5.1); Sodium 139 mmol/L (135-145); Total Protein 7.2 g/dL (6.5-8.0)
== END 2025-01-13 07:43 | disposition home or self-care (01) ==
LOC: HO.LAB 07:42
PROVIDERS: PCP Internal Medicine; Visit Provider Internal Medicine
DX: I10 Essential (primary) hypertension (principal); E11.65 Type 2 diabetes mellitus with hyperglycemia; E78.00 Pure hypercholesterolemia, unspecified; Z68.28 Body mass index [BMI] 28.0-28.9, adult
CPT/HCPCS: 36415; 80053; 83036